=== PATIENT | female | born 1990 ===

== ENCOUNTER 2018-02-22 00:58 | Inpatient (IN) | payer OTHER ==
--- NOTE | 2018-02-22 01:05 | C.PDOC ---
History Of Present Illness 26 year old female is brought to the ED by [facility] for evaluation. Patient states she is depressed and wants to but has no plan. Patient is and has one child, she tried to run from home and her sister in law called the Police. Patient denies HI, hallucinations, CP, SOB, abdominal pain. Time Seen by Provider: 02/22/18 01:04 Chief Complaint (Nursing): Psychiatric Evaluation History Per: Patient, Other (JC) History/Exam Limitations: no limitations Onset/Duration Of Symptoms: Hrs Current Symptoms Are (Timing): Still Present Suicide/Self Injury Attempted (Context): None Modifying Factor(s): None Associated Symptoms: Depression, Suicidal Thoughts. 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 Past Medical History Reviewed: Historical Data, Nursing Documentation, Vital Signs Vital Signs: Last Vital Signs Temp 97.5 F L 02/22/18 04:41 Pulse 86 02/22/18 04:41 Resp 20 02/22/18 04:41 BP 103/67 02/22/18 04:41 Pulse Ox 100 02/22/18 04:41 - Medical History PMH: No Chronic Diseases Surgical History: No Surg Hx Family History: States: Unknown Family Hx - Social History Hx Tobacco Use: No Hx Alcohol Use: No Hx Substance Use: No Review Of Systems Constitutional: Negative for: Fever, Chills Cardiovascular: Negative for: Chest Pain Respiratory: Negative for: Shortness of Breath Gastrointestinal: Negative for: Nausea, Vomiting Skin: Negative for: Rash Psych: Positive for: Depression, Suicidal ideation Physical Exam - Physical Exam Appears: Non-toxic, Other (tearful ) Skin: Warm, Dry Head: Normacephalic Eye(s): bilateral: Normal Inspection Oral Mucosa: Moist Neck: Supple Chest: Symmetrical, Other (small abrasion over left clavicle) Cardiovascular: Rhythm Regular Respiratory: No Rales, No Rhonchi, No Wheezing Gastrointestinal/Abdominal: Soft, No Tenderness, No Guarding, No Rebound Back: Normal Inspection Extremity: Normal ROM, No Tenderness, No Swelling Extremity: Bilateral: Atraumatic Neurological/Psych: Oriented x3, Normal Speech Gait: Steady ED Course And Treatment - Laboratory Results Result Diagrams: 02/22/18 01:24 02/22/18 01:24 O2 Sat by Pulse Oximetry: 100 (ON RA) Pulse Ox Interpretation: Normal Progress Note: Plan: - Labs. - UA. - 1:1 Obs. - crisis Disposition Counseled Patient/Family Regarding: Studies Performed, Diagnosis - Disposition Disposition Time: 01:05 Condition: FAIR Forms: [facility] (Rwandan) - Clinical Impression Clinical Impression: Major depression - Scribe Statement The provider has reviewed the documentation as recorded by the Scribe Boo Etienne All medical record entries made by the Scribe were at my direction and personally dictated by me. I have reviewed the chart and agree that the record accurately reflects my personal performance of the history, physical exam, medical decision making, and the department course for this patient. I have also personally directed, reviewed, and agree with the discharge instructions and disposition. Physician Patient Turnover Patient Signed Over To: Teena Harrison Handoff Comments: pending bed availalibility
[2018-02-22 01:06] VITALS: O2SAT 100
[2018-02-22 01:27] LABS: BASO % 0.3 % (0.0-2.0); EOS % 0.4 % (0.0-4.0); HEMOGLOBIN 12.6 g/dL (11.0-16.0); LYMPH % 10.2 % (20.0-40.0); MEAN CELL VOLUME 79.5 fL (81.0-99.0); MEAN CORPUSCULAR HEMOGLOBIN 26.5 pg (27.0-31.0); MEAN CORPUSCULAR HGB CONC 33.4 g/dL (33.0-37.0); MEAN PLATELET VOLUME 8.9 fL (7.2-11.7); MONO # 0.6 K/uL (0.0-0.8); MONO % 5.6 % (0.0-10.0); NEUT # 8.6 K/uL (1.8-7.0); NEUT % 83.5 % (50.0-75.0); RBC 4.75 Mil/uL (3.80-5.20); RED CELL DISTRIBUTION WIDTH 14.2 % (11.5-14.5); WHITE BLOOD COUNT 10.3 K/uL (4.8-10.8)
[2018-02-22 01:40] LABS: ALB/GLOB RATIO 1.3 (1.0-2.1); ALBUMIN 4.3 g/dL (3.5-5.0); ALT/SGPT 24 U/L (9-52); AST/SGOT 17 U/L (14-36); BLOOD UREA NITROGEN 15 mg/dL (7-17); CALCIUM 9.2 mg/dl (8.6-10.4); GFR AFRICAN-AMERICAN > 60; GFR NON-AFRICAN AMERICAN > 60
[2018-02-22 02:32] LABS: SQUAMOUS EPITHIAL < 1 /hpf (0-5); URINE BILIRUBIN NEGATIVE (NEGATIVE); URINE BLOOD NEGATIVE (NEGATIVE); URINE CLARITY Clear (Clear); URINE COLOR Yellow (YELLOW); URINE GLUCOSE (UA) NORMAL (Normal); URINE LEUKOCYTE ESTERASE NEG Leu/uL (Negative); URINE PROTEIN NEGATIVE (NEGATIVE); URINE UROBILINOGEN NORMAL mg/dL (0.2-1.0)
[2018-02-22 02:43] LABS: HCG,QUALITATIVE URINE NEGATIVE (NEGATIVE)
[2018-02-22 02:44] LABS: BARBITURATES, UR NEGATIVE (NEGATIVE); BENZODIAZEPINES, UR NEGATIVE (NEGATIVE); OPIATES, UR NEGATIVE (NEGATIVE); PHENCYCLIDINE, UR NEGATIVE (NEGATIVE)
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
--- NOTE | 2018-02-22 14:01 | PCM.BM ---
<Yin Segura - Last Filed: 02/23/18 12:18> Treatment Plan Problems - Problems identified on initial assessmt Problem 2 Date Initiated: 02/22/18 Time Initiated: 14:00 Assessment reference: NA Status: Active Family Contact Family involvement: Family/SO is involved Family contact: Patient agrees to contact, Family meeting planned to review treatment plan - Goals for Treatment Patient goals for treatment: " I want to go home and be with my baby." Discharge/Continuing Care - Education Needs Education Needs: Patient Medication, Patient Diagnosis/Disease Process, Patient Coping Skills, Patient Community resources - Discharge Discharge Criteria: Free of Suicidal thoughts, Normal sleep pattern, Ability to care for self, Reduction of target symptoms Discharge to:: Home - Treatment Team Participation Discussed with Family/SO: Yes Was Patient/Family/SO present at Treatment Team Meeting: No <Amy Renteria - Last Filed: 02/23/18 13:36> - Diagnosis (1) depression Status: Acute Interventions: 02/23/18 13:36 * Assess/adjust medications daily and /or as needed * See patient on an individual basis 7x/week to assess symptoms of depression * Monitor for side effects & effectiveness of medications * <Caitlin Montoya - Last Filed: 02/24/18 08:49> - Milieu Protocol Milieu Narrative: Lexapro 5 mg today, 10 mg tomorro wand will increase slowly Abilify for possible psychosis and also to augment lexapro Ativan prn Other prn meds Family meeting when she consents All risks, benefits and alternatives of the meds discussed, and the pt agreed and understood. Attend groups and activities Individual therapy daily Psychoeducation and support daily Encourage compliance with meds and after care Refer to outpatient program Teach healthy lifestyle methods, i.e. diet, exercise, meditation 32 min Discharge/Continuing Care - Treatment Team Participation Patient/Family/SO Statement: Lexapro 5 mg today, 10 mg tomorro wand will increase slowly Abilify for possible psychosis and also to augment lexapro Ativan prn Other prn meds Family meeting when she consents All risks, benefits and alternatives of the meds discussed, and the pt agreed and understood. Attend groups and activities Individual therapy daily Psychoeducation and support daily Encourage compliance with meds and after care Refer to outpatient program Teach healthy lifestyle methods, i.e. diet, exercise, meditation 32 min
--- NOTE | 2018-02-22 14:03 | PCM.BM ---
Treatment Plan Problems - Problems identified on initial assessmt Problem 2 Date Initiated: 02/22/18 Time Initiated: 14:00 Assessment reference: NA Status: Active - Milieu Protocol Milieu Narrative: Lexapro 5 mg today, 10 mg tomorro wand will increase slowly Abilify for possible psychosis and also to augment lexapro Ativan prn Other prn meds Family meeting when she consents All risks, benefits and alternatives of the meds discussed, and the pt agreed and understood. Attend groups and activities Individual therapy daily Psychoeducation and support daily Encourage compliance with meds and after care Refer to outpatient program Teach healthy lifestyle methods, i.e. diet, exercise, meditation 32 min Discharge/Continuing Care - Treatment Team Participation Patient/Family/SO Statement: Lexapro 5 mg today, 10 mg tomorro wand will increase slowly Abilify for possible psychosis and also to augment lexapro Ativan prn Other prn meds Family meeting when she consents All risks, benefits and alternatives of the meds discussed, and the pt agreed and understood. Attend groups and activities Individual therapy daily Psychoeducation and support daily Encourage compliance with meds and after care Refer to outpatient program Teach healthy lifestyle methods, i.e. diet, exercise, meditation 32 min
--- NOTE | 2018-02-23 11:52 | PCM.PYCHPN ---
Psychiatric Progress Note - Psychiatric Progress Note Patient seen today, length of contact: 32 min Patient Chief Complaint: "I feel better" Problems Identified/Issues Discussed: The patient was seen, chart reviewed and case discussed. Her came for a family meeting and met with the patient and the treatment team. Yesterday the patient was adamant to not have any single relationship with the family including her but she changed her mind quickly and spoke to her who later on visited. Today also she was having mixed feelings but agreed to meet with the and she started to ask about discharge home. She says she misses her daughter and wants to be with her. According to the , she never had any issues until and only after the delivery she started to have more breakdowns like this one. He denies any significant issue between the patient and him or his family, and he looked like a calm pleasant and polite person. The patient greeted him well and their interaction is observed to be positive. Her denied ever noticing any psychotic or manic symptoms and denied any substance use issues. He repeated the same story the patient told us and he confirmed that he will support her emotionally and encourage her to attend outpatient program. Support and psychoeducation given Lexapro will be increased to 10 mg tomorrow Aftercare discussed and she will go to [facility] for [facility] Medication Change: Yes (increase lexapro) Medical Record Reviewed: Yes Mental Status Examination - Cognitive Function Orientation: Person, Place, Situation, Time Memory: Intact Attention: WNL Concentration: Poor Association: WNL Fund of Knowledge: WNL - Mood Mood: Depressed, Anxious - Affect Affect: Constricted - Speech Speech: Appropriate - Formal Thought Process Formal Thought Process: No Impairment - Suicidal Ideation Suicidal Ideation: No - Homicidal Ideation Homicidal Ideation: No Goal/Treatment Plan - Goal/Treatment Plan Need for Continued Stay: Severe depression anxiety, Discharge may exacerbated symptoms, Severe functional impairment Progress Toward Problem(s) and Goals/Treatment Plan: Lexapro 5 mg today, 10 mg tomorrow Abilify discontinued because she refused Ativan prn Other prn meds Family meeting when she consents All risks, benefits and alternatives of the meds discussed, and the pt agreed and understood. Attend groups and activities Individual therapy daily Psychoeducation and support daily Encourage compliance with meds and after care Refer to outpatient program Teach healthy lifestyle methods, i.e. diet, exercise, meditation Estimated Date of D/C: 02/25/18
--- NOTE | 2018-02-24 08:53 | PCM.BM ---
<Caitlin Montoya - Last Filed: 02/24/18 08:50> Treatment Plan Problems - Problems identified on initial assessmt Problem 2 Date Initiated: 02/22/18 Time Initiated: 14:00 Assessment reference: NA Status: Active Depression Date Initiated: 02/24/18 Time Initiated: 08:51 Assessment reference: NA Status: Active Treatment assets and liabiliti Patient Assests: cooperative, physically healthy, cognitively intact Patient Liabilities: relationship conflicts, language/speech (patient has limited Haitian) - Milieu Protocol Maintain good personal hygiene: daily Encourage regular showers, daily Remind patient to perform daily oral care, daily Assist patient to perform ADL's Maintain personal safety: daily Educate patient to report safety concerns to staff, daily Monitor environment for contraband/sharps Medication safety: Monitor for expected outcome, potential side effects: daily, Assess barriers to learning: daily, Assess readiness for medication education: daily Family Contact Family involvement: Family/SO is involved Family contact: Patient agrees to contact, Family meeting planned to review treatment plan - Goals for Treatment Patient goals for treatment: " I want to go home and be with my baby." Discharge/Continuing Care - Education Needs Education Needs: Patient Medication, Patient Diagnosis/Disease Process, Patient Coping Skills, Patient Community resources - Discharge Discharge Criteria: Free of Suicidal thoughts, Normal sleep pattern, Ability to care for self, Reduction of target symptoms Discharge to:: Home - Treatment Team Participation Discussed with Family/SO: Yes Was Patient/Family/SO present at Treatment Team Meeting: No <Amy Renteria - Last Filed: 02/24/18 11:28> - Diagnosis (1) depression Status: Acute Interventions: 02/24/18 11:28 * Assess/adjust medications daily and /or as needed * See patient on an individual basis 7x/week to assess symptoms of depression * Monitor for side effects & effectiveness of medications * <Yin Segura - Last Filed: 02/24/18 13:36>
--- NOTE | 2018-02-24 11:31 | PCM.PYCHPN ---
Psychiatric Progress Note - Psychiatric Progress Note Patient seen today, length of contact: 18 min Patient Chief Complaint: "I am anxious" Problems Identified/Issues Discussed: The patient was seen, chart reviewed and case discussed. She is somewhat better - denying suicidal thoughts now, looks better but a little anxious and guarded She agrees to take meds and go to [facility], our outpt program GOt 10 mg today, not 5 mg, Lexapro No SEs Support given Symptom management discussed CBT used Medication Change: Yes (increase lexapro) Medical Record Reviewed: Yes Mental Status Examination - Cognitive Function Orientation: Person, Place, Situation, Time Memory: Intact Attention: WNL Concentration: Poor Association: WNL Fund of Knowledge: WNL - Mood Mood: Depressed, Anxious - Affect Affect: Constricted - Speech Speech: Appropriate - Formal Thought Process Formal Thought Process: No Impairment - Suicidal Ideation Suicidal Ideation: No - Homicidal Ideation Homicidal Ideation: No Goal/Treatment Plan - Goal/Treatment Plan Need for Continued Stay: Severe depression anxiety, Discharge may exacerbated symptoms, Severe functional impairment Progress Toward Problem(s) and Goals/Treatment Plan: Lexapro 10 mg today Ativan prn Other prn meds Family meeting when she consents All risks, benefits and alternatives of the meds discussed, and the pt agreed and understood. Attend groups and activities Individual therapy daily Psychoeducation and support daily Encourage compliance with meds and after care Refer to outpatient program Teach healthy lifestyle methods, i.e. diet, exercise, meditation Estimated Date of D/C: 02/25/18
[2018-02-25 06:34] VITALS: BP 116/77; PULSE 93; RESP 20; TEMP 97.9
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
== END 2018-02-25 10:35 | disposition home or self-care (01) | DRG 885 ==
LOC: EDBD 00:58 → C.ER 00:58 → EEVIPCON 08:56 → C.9E 08:56 → C.5E 10:43
PROVIDERS: ADMIT Psychiatry & Neurology Psychiatry; ATTEND Psychiatry & Neurology Psychiatry
PROC: GZHZZZZ Group Psychotherapy (ICD-10-PCS; principal; 2018-02-22)
PROC: GZ58ZZZ Individual Psychotherapy, Cognitive-Behavioral (ICD-10-PCS; 2018-02-22)
PROC: GZ56ZZZ Individual Psychotherapy, Supportive (ICD-10-PCS; 2018-02-22)
DX: F32.2 Major depressive disorder, single episode, severe without psychotic features (principal); R45.851 Suicidal ideations

== ENCOUNTER 2018-05-18 16:27 | Emergency (ER) | payer OTHER ==
[2018-05-18 16:34] VITALS: BP 118/85; PULSE 94; RESP 18; TEMP 97.4; O2SAT 100
--- NOTE | 2018-05-18 17:16 | C.PDOC ---
History Of Present Illness 27 year old female presents to the ER with significant other after they got into a disagreement with each other and made a comment of wanting to hurt herself. On arrival, patient states she does not truly feel that, she was upset and said it out of anger. Denies ETOH use, substance abuse, suicidal ideation, or homicidal ideation. Time Seen by Provider: 05/18/18 16:41 Chief Complaint (Nursing): Psychiatric Evaluation History Per: Patient History/Exam Limitations: no limitations Onset/Duration Of Symptoms: Hrs Current Symptoms Are (Timing): Gone Suicide/Self Injury Attempted (Context): None Modifying Factor(s): None Associated Symptoms: denies: Suicidal Thoughts, Other (Homicidal ideation) Involuntary Hold By: None Recent travel outside of the [place]: No Past Medical History Reviewed: Historical Data, Nursing Documentation, Vital Signs Vital Signs: Last Vital Signs Temp 97.4 F L 05/18/18 16:29 Pulse 94 H 05/18/18 16:29 Resp 18 05/18/18 16:29 BP 118/85 05/18/18 16:29 Pulse Ox 100 05/18/18 17:26 - Medical History PMH: Depression Denies: Diabetes, Hepatitis, HIV, HTN, Chronic Kidney Disease, Seizures, Sexually Transmitted Disease - [facility] Procedures GROUP PSYCHOTHERAPY (02/22/18) INDIVIDUAL PSYCHOTHERAPY, COGNITIVE-BEHAVIORAL (02/22/18) INDIVIDUAL PSYCHOTHERAPY, SUPPORTIVE (02/22/18) Family History: States: Unknown Family Hx - Social History Hx Tobacco Use: No Hx Alcohol Use: No Hx Substance Use: No Review Of Systems Constitutional: Negative for: Fever, Chills Cardiovascular: Negative for: Chest Pain, Palpitations Respiratory: Negative for: Cough, Shortness of Breath Gastrointestinal: Negative for: Nausea, Vomiting Psych: Negative for: Suicidal ideation, Other (Homicidal ideation) Physical Exam - Physical Exam Appears: Non-toxic Skin: Normal Color, Warm, Dry Head: Atraumatic, Normacephalic Eye(s): bilateral: Normal Inspection Oral Mucosa: Moist Chest: Symmetrical, No Tenderness Cardiovascular: Rhythm Regular Respiratory: Normal Breath Sounds, No Rales, No Rhonchi, No Wheezing Gastrointestinal/Abdominal: Soft, No Tenderness Neurological/Psych: Oriented x3, Normal Speech ED Course And Treatment O2 Sat by Pulse Oximetry: 100 (Room air) Pulse Ox Interpretation: Normal Medical Decision Making Medical Decision Making: Assessment: Mood disorder Patient cleared by Dr. Dominguez for discharge. Disposition Discussed With Dr.: Joesph Dominguez Counseled Patient/Family Regarding: Studies Performed, Diagnosis - Disposition Disposition: HOME/ ROUTINE Disposition Time: 17:28 Condition: STABLE Additional Instructions: follow up with your doctor within 2 days call to make an appointment return to ER if symptoms worsens Instructions: Screening for Depression Forms: [facility] ([place]), General Discharge Instructions - Clinical Impression Clinical Impression: Agitation - Scribe Statement The provider has reviewed the documentation as recorded by the Scribvernell Noguera All medical record entries made by the Rubiaibvernell were at my direction and personally dictated by me. I have reviewed the chart and agree that the record accurately reflects my personal performance of the history, physical exam, medical decision making, and the department course for this patient. I have also personally directed, reviewed, and agree with the discharge instructions and disposition.
== END 2018-05-18 17:35 | disposition home or self-care (01) ==
LOC: C.ER 16:27
DX: R45.1 Restlessness and agitation (principal)

== ENCOUNTER 2019-01-30 03:41 | Inpatient (IN) | payer OTHER ==
[2019-01-30] MEDS ORDERED: Sodium Chloride 0.9% 1,000 ML IV ONE ×3 (03:56→06:13)
[2019-01-30 04:30] LABS: BASO # 0.1 K/uL (0.0-0.2); BASO % 0.4 % (0.0-2.0); EOS # 0.1 K/uL (0.0-0.7); EOS % 0.4 % (0.0-4.0); HEMOGLOBIN 12.8 g/dL (11.0-16.0); LYMPH # 2.2 K/uL (1.0-4.3); LYMPH % 15.1 % (20.0-40.0); MEAN CELL VOLUME 80.3 fL (81.0-99.0); MEAN CORPUSCULAR HEMOGLOBIN 25.7 pg (27.0-31.0); MEAN PLATELET VOLUME 8.5 fL (7.2-11.7); MONO # 0.6 K/uL (0.0-0.8); MONO % 3.9 % (0.0-10.0); NEUT # 11.4 K/uL (1.8-7.0); NEUT % 80.2 % (50.0-75.0); RBC 4.98 Mil/uL (3.80-5.20); RED CELL DISTRIBUTION WIDTH 13.9 % (11.5-14.5); WHITE BLOOD COUNT 14.3 K/uL (4.8-10.8)
[2019-01-30 04:58] LABS: ACETAMINOPHEN < 10.0 ug/mL (10.0-30.0); ALB/GLOB RATIO 1.4 (1.0-2.1); ALBUMIN 4.8 g/dL (3.5-5.0); ALT/SGPT 22 U/L (9-52); AST/SGOT 19 U/L (14-36); BLOOD UREA NITROGEN 14 mg/dL (7-17); CALCIUM 9.7 mg/dl (8.6-10.4); GFR NON-AFRICAN AMERICAN 44; LIPASE 134 U/L (23-300); SALICYLATE < 1.0 {null, mg/dL 1}
[2019-01-30 04:58] LABS: BROAD CAST 5 /lpf (0-1); URINE AMORPHOUS SEDIMENT RARE /ul (<OCC); URINE BACTERIA RARE (<OCC); URINE BILIRUBIN NEGATIVE (NEGATIVE); URINE BLOOD 1+ (NEGATIVE); URINE CLARITY Clear (Clear); URINE COLOR Straw (YELLOW); URINE GLUCOSE (UA) 1+ mg/dL (Normal); URINE LEUKOCYTE ESTERASE NEG Leu/uL (Negative); URINE PROTEIN 1+ mg/dL (NEGATIVE); URINE UROBILINOGEN NORMAL mg/dL (0.2-1.0)
[2019-01-30 04:59] LABS: HCG,QUALITATIVE URINE NEGATIVE (NEGATIVE)
[2019-01-30 05:05] LABS: BARBITURATES, UR NEGATIVE (NEGATIVE); BENZODIAZEPINES, UR NEGATIVE (NEGATIVE); OPIATES, UR NEGATIVE (NEGATIVE); PHENCYCLIDINE, UR NEGATIVE (NEGATIVE)
--- NOTE | 2019-01-30 05:27 | C.PDOC ---
History Of Present Illness 28-year-old female is brought to the ED by ambulance with at bedside for evaluation of nausea, vomiting and diarrhea which began prior to arrival. Patient states she got into an argument with her and took ten tablets of 500mg Metformin because she wanted to hurt herself. Upon ED arrival, patient states she feels tired and sleepy. Patient has past psychiatric history and has been admitted for suicidal ideation in the past. As per , patient took Lexapro in the past but is no longer taking the medication. Patient denies shortness of breath, chest pain, and abdominal pain at this time. Pt denies taking any more pills or drugs. Time Seen by Provider: 01/30/19 03:56 Chief Complaint (Nursing): GI Problem History Per: Patient, Family History/Exam Limitations: no limitations Onset/Duration Of Symptoms: Hrs Current Symptoms Are (Timing): Still Present Suicide/Self Injury Attempted (Context): Ingestion Modifying Factor(s): None Associated Symptoms: Suicidal Thoughts Additional History Per: Patient Past Medical History Reviewed: Historical Data, Nursing Documentation, Vital Signs Vital Signs: Last Vital Signs Temp 98 F 01/30/19 05:20 Pulse 76 01/30/19 05:20 Resp 16 01/30/19 05:20 BP 106/65 01/30/19 05:20 Pulse Ox 99 01/30/19 05:20 Primary Care Provider: Non [facility] Provider, - Medical History PMH: Depression Denies: Diabetes, Hepatitis, HIV, HTN, Chronic Kidney Disease, Seizures, Sexually Transmitted Disease Surgical History: No Surg Hx - [facility] Procedures GROUP PSYCHOTHERAPY (02/22/18) INDIVIDUAL PSYCHOTHERAPY, COGNITIVE-BEHAVIORAL (02/22/18) INDIVIDUAL PSYCHOTHERAPY, SUPPORTIVE (02/22/18) Family History: States: Unknown Family Hx - Social History Hx Tobacco Use: No Hx Alcohol Use: No Hx Substance Use: No Review Of Systems Cardiovascular: Negative for: Chest Pain Respiratory: Positive for: Shortness of Breath Gastrointestinal: Positive for: Nausea, Vomiting, Diarrhea. Negative for: Abdominal Pain Psych: Positive for: Suicidal ideation Physical Exam - Physical Exam Appears: Non-toxic, No Acute Distress, Other (sleepy, but arousable to focal stimuli ) Skin: Normal Color, Warm, Dry Head: Atraumatic, Normacephalic Eye(s): bilateral: Normal Inspection Oral Mucosa: Moist Neck: Supple Chest: Symmetrical, No Deformity, No Tenderness Cardiovascular: Rhythm Regular, No Murmur Respiratory: Normal Breath Sounds, No Rales, No Rhonchi, No Wheezing Gastrointestinal/Abdominal: Soft, No Tenderness, No Guarding, No Rebound Extremity: Normal ROM, Capillary Refill (less than 2 seconds ) Neurological/Psych: Normal Speech, Normal Cognition ED Course And Treatment - Laboratory Results Result Diagrams: 01/30/19 04:31 01/30/19 04:31 Lab Results: Total Bilirubin 0.5 mg/dL (0.2-1.3) 01/30/19 04:31 AST 19 U/L (14-36) 01/30/19 04:31 ALT 22 U/L (9-52) 01/30/19 04:31 Alkaline Phosphatase 88 U/L (38-126) 01/30/19 04:31 Total Protein 8.1 g/dL (6.3-8.3) 01/30/19 04:31 Albumin 4.8 g/dL (3.5-5.0) 01/30/19 04:31 Globulin 3.4 gm/dL (2.2-3.9) 01/30/19 04:31 Albumin/Globulin Ratio 1.4 (1.0-2.1) 01/30/19 04:31 Lipase 134 U/L (23-300) 01/30/19 04:31 Urine Color Straw (YELLOW) 01/30/19 04:45 Urine Clarity Clear (Clear) 01/30/19 04:45 Urine pH 5.0 (5.0-8.0) 01/30/19 04:45 Ur Specific [place] 1.005 (1.003-1.030) 01/30/19 04:45 Urine Protein 1+ mg/dL (NEGATIVE) H 01/30/19 04:45 Urine Glucose (UA) 1+ mg/dL (Normal) 01/30/19 04:45 Urine Ketones Negative mg/dL (NEGATIVE) 01/30/19 04:45 Urine Blood 1+ (NEGATIVE) H 01/30/19 04:45 Urine Nitrate Negative (NEGATIVE) 01/30/19 04:45 Urine Bilirubin Negative (NEGATIVE) 01/30/19 04:45 Urine Urobilinogen Normal mg/dL (0.2-1.0) 01/30/19 04:45 Ur Leukocyte Esterase Neg [place]/uL (Negative) 01/30/19 04:45 Urine WBC (Auto) 1 /hpf (0-5) 01/30/19 04:45 Urine RBC (Auto) 6 /hpf (0-3) H 01/30/19 04:45 Amorphous Sediment Rare /ul (<OCC) H 01/30/19 04:45 Urine Bacteria Rare (<OCC) 01/30/19 04:45 Broad Casts 5 /lpf (0-1) 01/30/19 04:45 Urine HCG, Qual Negative (NEGATIVE) 01/30/19 04:45 Beta HCG, Quant < 2.39 mIU/ML 01/30/19 04:31 Urine HCG, Qual Negative (NEGATIVE) 01/30/19 04:45 O2 Sat by Pulse Oximetry: 99 (on RA) Pulse Ox Interpretation: Normal Progress Note: Poison control was contacted by DANIELLE Talbot. Informed that labs, including lactic acid, should be drawn. Patient with accu check of 153 on arrival. bead worker sewing was consulted for evaluation. Bloodwork and urinalysis ordered and reviewed. Patient with lactic acid level of 5.3. IV Fluids and Zofran given. VBG panel ordered. Pt with PH of 7.2 and lactate of 6.2 on VBG. Pt will be admitted to ICU under Dr Encarnacion with assistant director of security consult- case d/w dr River (ICU) and Dr Encarnacion who accepted the patient. Poison control consulted. Spoke to Woodrow from Poison Control regarding patient's lactic acid and pH level. Advised that as long as patient remains stable, lactic acid and pH levels should be repeated every 4 hours. Determination will be made to contact Poison Control if there is any remarkable deviation of levels. Critical Care Time - Critical Care Note Total Time (in mins): 30 Documented critical care: time excludes all time spent performing seperately billable procedures. 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 - Scribe Statement The provider has reviewed the documentation as recorded by the Scribe (Deyanira Hernandez) All medical record entries made by the Scribe were at my direction and personally dictated by me. I have reviewed the chart and agree that the record accurately reflects my personal performance of the history, physical exam, medical decision making, and the department course for this patient. I have also personally directed, reviewed, and agree with the discharge instructions and disposition.
[2019-01-30 05:46] LABS: VENOUS BLOOD GAS BASE EXCESS -9.9 mmol/L (0.0-2.0); VENOUS BLOOD GAS PCO2 46 mmHg (40-60); VENOUS BLOOD GAS PO2 33 mm/Hg (30-55)
--- NOTE | 2019-01-30 06:35 | CP.PCM.CON ---
History of Present Illness - History of Present Illness History of Present Illness: CCM 28 yo female with hx Depression /suicidal ideation to ED after ingesting 10 tabs Metformin 500 mg. Pt c/o nausea/vomiting feeling cold. Recieving IV fluid in ED. Poison control suggestd repeat lactate levels in 4 hrs. Pt just vomited when seen in ED.NO sob /pain. ROS- as noted All- NKDA social- no tob/ etoh/drugs Meds- reviewed, None FH- Unknown PE T-97.7 P-86 R-20 BP-102/66 Awake,responisve Neck- no jvdlungs- bilat bs Heart-rr ABd- bs+, soft, nontneder Ext- no edema, nontender Neuro- nonfocal Labs, EKG-reviewed A&P Metformin OD Suicide Attempt BETH Lactic Acidosis Depression Admit to ICU IV fluid f/u lactate /ABG May require dialysis Psych eval DVT prophylaxis Past Patient History - Past Social History Smoking Status: Never Smoked - CARDIAC Hx Hypertension: No - PULMONARY Hx Respiratory Disorders: No Hx Tuberculosis: No - NEUROLOGICAL Hx Seizures: No - HEENT Hx HEENT Problems: No - RENAL Hx Chronic Kidney Disease: No - ENDOCRINE/METABOLIC Hx Endocrine Disorders: Yes Other/Comment: gestational diabetes - HEMATOLOGICAL/ONCOLOGICAL Hx Human Immunodeficiency Virus (HIV): No - INTEGUMENTARY Hx Dermatological Problems: No - MUSCULOSKELETAL/RHEUMATOLOGICAL Hx Musculoskeletal Disorders: No - GASTROINTESTINAL Hx Gastrointestinal Disorders: No - GENITOURINARY/GYNECOLOGICAL Hx Sexually Transmitted Disorders: No - PSYCHIATRIC Hx Depression: Yes Hx Substance Use: No - SURGICAL HISTORY Hx Surgeries: No - ANESTHESIA Hx Anesthesia: No Meds Allergies/Adverse Reactions: Allergies Allergy/AdvReac Type Severity Reaction Status Date / Time No Known Allergies Allergy Verified 01/30/19 03:56 - Medications Medications: Current Medications Sodium Chloride (Sodium Chloride 0.9%) 1,000 mls @ 1,000 mls/hr IV .Q1H ONE Stop: 01/30/19 07:12 Last Admin: 01/30/19 06:19 Dose: 1,000 mls/hr Results - Vital Signs Recent Vital Signs: Last Vital Signs Temp 97.7 F 01/30/19 06:25 Pulse 83 01/30/19 06:25 Resp 16 01/30/19 06:25 BP 102/66 01/30/19 06:25 Pulse Ox 98 01/30/19 06:25 - Labs Result Diagrams: 01/30/19 04:31 01/30/19 04:31 Labs: Laboratory Results - last 24 hr 01/30/19 01/30/19 01/30/19 04:02 04:31 04:31 WBC 14.3 H RBC 4.98 Hgb 12.8 Hct 40.0 MCV 80.3 L MCH 25.7 L MCHC 32.0 L RDW 13.9 Plt Count 243 MPV 8.5 Neut % (Auto) 80.2 H Lymph % (Auto) 15.1 L [place] % (Auto) 3.9 Eos % (Auto) 0.4 Baso % (Auto) 0.4 Neut # (Auto) 11.4 H Lymph # (Auto) 2.2 [place] # (Auto) 0.6 Eos # (Auto) 0.1 Baso # (Auto) 0.1 pO2 VBG pH VBG pCO2 VBG HCO3 VBG Total CO2 VBG O2 Sat (Calc) VBG Base Excess VBG Potassium Glucose Lactate Crit Value Called To Crit Value Called By Crit Value Read Back Blood Gas Notified Time Sodium 142 Potassium 4.7 Chloride 107 Carbon Dioxide 14 L Anion Gap 26 H BUN 14 Creatinine 1.4 H Est GFR ( Amer) 53 Est GFR (Non-Af Amer) 44 POC Glucose (mg/dL) 158 H Random Glucose 155 H Lactic Acid Calcium 9.7 Total Bilirubin 0.5 AST 19 ALT 22 Alkaline Phosphatase 88 Total Protein 8.1 Albumin 4.8 Globulin 3.4 Albumin/Globulin Ratio 1.4 Lipase 134 Beta HCG, Quant Venous Blood Potassium Urine Color Urine Clarity Urine pH Ur Specific [place] Urine Protein Urine Glucose (UA) Urine Ketones Urine Blood Urine Nitrate Urine Bilirubin Urine Urobilinogen Ur Leukocyte Esterase Urine WBC (Auto) Urine RBC (Auto) Amorphous Sediment Urine Bacteria Broad Casts Urine HCG, Qual Salicylates Urine Opiates Screen Urine Methadone Screen Acetaminophen Ur Barbiturates Screen Ur Phencyclidine Scrn Ur Amphetamines Screen U Benzodiazepines Scrn U Oth Cocaine Metabols U Cannabinoids Screen Alcohol, Quantitative < 10 01/30/19 01/30/19 01/30/19 04:31 04:31 04:35 WBC RBC Hgb Hct MCV MCH MCHC RDW Plt Count MPV Neut % (Auto) Lymph % (Auto) [place] % (Auto) Eos % (Auto) Baso % (Auto) Neut # (Auto) Lymph # (Auto) [place] # (Auto) Eos # (Auto) Baso # (Auto) pO2 VBG pH VBG pCO2 VBG HCO3 VBG Total CO2 VBG O2 Sat (Calc) VBG Base Excess VBG Potassium Glucose Lactate Crit Value Called To Crit Value Called By Crit Value Read Back Blood Gas Notified Time Sodium Potassium Chloride Carbon Dioxide Anion Gap BUN Creatinine Est GFR ( Amer) Est GFR (Non-Af Amer) POC Glucose (mg/dL) Random Glucose Lactic Acid 5.3 H* Calcium Total Bilirubin AST ALT Alkaline Phosphatase Total Protein Albumin Globulin Albumin/Globulin Ratio Lipase Beta HCG, Quant < 2.39 Venous Blood Potassium Urine Color Urine Clarity Urine pH Ur Specific [place] Urine Protein Urine Glucose (UA) Urine Ketones Urine Blood Urine Nitrate Urine Bilirubin Urine Urobilinogen Ur Leukocyte Esterase Urine WBC (Auto) Urine RBC (Auto) Amorphous Sediment Urine Bacteria Broad Casts Urine HCG, Qual Salicylates < 1.0 Urine Opiates Screen Urine Methadone Screen Acetaminophen < 10.0 L Ur Barbiturates Screen Ur Phencyclidine Scrn Ur Amphetamines Screen U Benzodiazepines Scrn U Oth Cocaine Metabols U Cannabinoids Screen Alcohol, Quantitative 01/30/19 01/30/19 01/30/19 04:45 04:45 05:05 WBC RBC Hgb Hct MCV MCH MCHC RDW Plt Count MPV Neut % (Auto) Lymph % (Auto) [place] % (Auto) Eos % (Auto) Baso % (Auto) Neut # (Auto) Lymph # (Auto) [place] # (Auto) Eos # (Auto) Baso # (Auto) pO2 VBG pH VBG pCO2 VBG HCO3 VBG Total CO2 VBG O2 Sat (Calc) VBG Base Excess VBG Potassium Glucose Lactate Crit Value Called To Crit Value Called By Crit Value Read Back Blood Gas Notified Time Sodium Potassium Chloride Carbon Dioxide Anion Gap BUN Creatinine Est GFR ( Amer) Est GFR (Non-Af Amer) POC Glucose (mg/dL) 138 H Random Glucose Lactic Acid Calcium Total Bilirubin AST ALT Alkaline Phosphatase Total Protein Albumin Globulin Albumin/Globulin Ratio Lipase Beta HCG, Quant Venous Blood Potassium Urine Color Straw Urine Clarity Clear Urine pH 5.0 Ur Specific [place] 1.005 Urine Protein 1+ H Urine Glucose (UA) 1+ Urine Ketones Negative Urine Blood 1+ H Urine Nitrate Negative Urine Bilirubin Negative Urine Urobilinogen Normal Ur Leukocyte Esterase Neg Urine WBC (Auto) 1 Urine RBC (Auto) 6 H Amorphous Sediment Rare H Urine Bacteria Rare Broad Casts 5 Urine HCG, Qual Negative Salicylates Urine Opiates Screen Negative Urine Methadone Screen Negative Acetaminophen Ur Barbiturates Screen Negative Ur Phencyclidine Scrn Negative Ur Amphetamines Screen Negative U Benzodiazepines Scrn Negative U Oth Cocaine Metabols Negative U Cannabinoids Screen Negative Alcohol, Quantitative 01/30/19 05:31 WBC RBC Hgb Hct MCV MCH MCHC RDW Plt Count MPV Neut % (Auto) Lymph % (Auto) [place] % (Auto) Eos % (Auto) Baso % (Auto) Neut # (Auto) Lymph # (Auto) [place] # (Auto) Eos # (Auto) Baso # (Auto) pO2 33 VBG pH 7.20 L VBG pCO2 46 VBG HCO3 15.9 VBG Total CO2 19.4 L VBG O2 Sat (Calc) 60.3 VBG Base Excess -9.9 L VBG Potassium 5.3 H Glucose 150 H Lactate 6.2 H* Crit Value Called To Dr acharya Crit Value Called By Aleah rt Crit Value Read Back Y Blood Gas Notified Time 546 Sodium 142.0 Potassium Chloride 108.0 H Carbon Dioxide Anion Gap BUN Creatinine Est GFR ( Amer) Est GFR (Non-Af Amer) POC Glucose (mg/dL) Random Glucose Lactic Acid Calcium Total Bilirubin AST ALT Alkaline Phosphatase Total Protein Albumin Globulin Albumin/Globulin Ratio Lipase Beta HCG, Quant Venous Blood Potassium 5.3 H Urine Color Urine Clarity Urine pH Ur Specific [place] Urine Protein Urine Glucose (UA) Urine Ketones Urine Blood Urine Nitrate Urine Bilirubin Urine Urobilinogen Ur Leukocyte Esterase Urine WBC (Auto) Urine RBC (Auto) Amorphous Sediment Urine Bacteria Broad Casts Urine HCG, Qual Salicylates Urine Opiates Screen Urine Methadone Screen Acetaminophen Ur Barbiturates Screen Ur Phencyclidine Scrn Ur Amphetamines Screen U Benzodiazepines Scrn U Oth Cocaine Metabols U Cannabinoids Screen Alcohol, Quantitative
[2019-01-30] MEDS: Sodium Chloride 0.9% 1,000 ML IV SCH ×5 (07:51→22:00)
--- NOTE | 2019-01-30 08:13 | CP.PCM.HP ---
Past Patient History - Past Social History Smoking Status: Never Smoked - CARDIAC Hx Hypertension: No - PULMONARY Hx Respiratory Disorders: No Hx Tuberculosis: No - NEUROLOGICAL Hx Seizures: No - HEENT Hx HEENT Problems: No - RENAL Hx Chronic Kidney Disease: No - ENDOCRINE/METABOLIC Hx Endocrine Disorders: Yes Other/Comment: gestational diabetes - HEMATOLOGICAL/ONCOLOGICAL Hx Human Immunodeficiency Virus (HIV): No - INTEGUMENTARY Hx Dermatological Problems: No - MUSCULOSKELETAL/RHEUMATOLOGICAL Hx Musculoskeletal Disorders: No - GASTROINTESTINAL Hx Gastrointestinal Disorders: No - GENITOURINARY/GYNECOLOGICAL Hx Sexually Transmitted Disorders: No - PSYCHIATRIC Hx Depression: Yes Hx Substance Use: No - SURGICAL HISTORY Hx Surgeries: No - ANESTHESIA Hx Anesthesia: No Meds Allergies/Adverse Reactions: Allergies Allergy/AdvReac Type Severity Reaction Status Date / Time No Known Allergies Allergy Verified 01/30/19 03:56 Results - Vital Signs Recent Vital Signs: Last Vital Signs Temp 97.9 F 01/30/19 07:57 Pulse 75 01/30/19 07:52 Resp 13 01/30/19 07:52 BP 106/79 01/30/19 07:52 Pulse Ox 100 01/30/19 07:52 - Labs Result Diagrams: 01/30/19 04:31 01/30/19 04:31 Labs: Laboratory Results - last 24 hr 01/30/19 01/30/19 01/30/19 04:02 04:31 04:31 WBC 14.3 H RBC 4.98 Hgb 12.8 Hct 40.0 MCV 80.3 L MCH 25.7 L MCHC 32.0 L RDW 13.9 Plt Count 243 MPV 8.5 Neut % (Auto) 80.2 H Lymph % (Auto) 15.1 L [place] % (Auto) 3.9 Eos % (Auto) 0.4 Baso % (Auto) 0.4 Neut # (Auto) 11.4 H Lymph # (Auto) 2.2 [place] # (Auto) 0.6 Eos # (Auto) 0.1 Baso # (Auto) 0.1 pO2 VBG pH VBG pCO2 VBG HCO3 VBG Total CO2 VBG O2 Sat (Calc) VBG Base Excess VBG Potassium Glucose Lactate Crit Value Called To Crit Value Called By Crit Value Read Back Blood Gas Notified Time Sodium 142 Potassium 4.7 Chloride 107 Carbon Dioxide 14 L Anion Gap 26 H BUN 14 Creatinine 1.4 H Est GFR ( Amer) 53 Est GFR (Non-Af Amer) 44 POC Glucose (mg/dL) 158 H Random Glucose 155 H Lactic Acid Calcium 9.7 Total Bilirubin 0.5 AST 19 ALT 22 Alkaline Phosphatase 88 Total Protein 8.1 Albumin 4.8 Globulin 3.4 Albumin/Globulin Ratio 1.4 Lipase 134 Beta HCG, Quant Venous Blood Potassium Urine Color Urine Clarity Urine pH Ur Specific [place] Urine Protein Urine Glucose (UA) Urine Ketones Urine Blood Urine Nitrate Urine Bilirubin Urine Urobilinogen Ur Leukocyte Esterase Urine WBC (Auto) Urine RBC (Auto) Amorphous Sediment Urine Bacteria Broad Casts Urine HCG, Qual Salicylates Urine Opiates Screen Urine Methadone Screen Acetaminophen Ur Barbiturates Screen Ur Phencyclidine Scrn Ur Amphetamines Screen U Benzodiazepines Scrn U Oth Cocaine Metabols U Cannabinoids Screen Alcohol, Quantitative < 10 01/30/19 01/30/19 01/30/19 04:31 04:31 04:35 WBC RBC Hgb Hct MCV MCH MCHC RDW Plt Count MPV Neut % (Auto) Lymph % (Auto) [place] % (Auto) Eos % (Auto) Baso % (Auto) Neut # (Auto) Lymph # (Auto) [place] # (Auto) Eos # (Auto) Baso # (Auto) pO2 VBG pH VBG pCO2 VBG HCO3 VBG Total CO2 VBG O2 Sat (Calc) VBG Base Excess VBG Potassium Glucose Lactate Crit Value Called To Crit Value Called By Crit Value Read Back Blood Gas Notified Time Sodium Potassium Chloride Carbon Dioxide Anion Gap BUN Creatinine Est GFR ( Amer) Est GFR (Non-Af Amer) POC Glucose (mg/dL) Random Glucose Lactic Acid 5.3 H* Calcium Total Bilirubin AST ALT Alkaline Phosphatase Total Protein Albumin Globulin Albumin/Globulin Ratio Lipase Beta HCG, Quant < 2.39 Venous Blood Potassium Urine Color Urine Clarity Urine pH Ur Specific [place] Urine Protein Urine Glucose (UA) Urine Ketones Urine Blood Urine Nitrate Urine Bilirubin Urine Urobilinogen Ur Leukocyte Esterase Urine WBC (Auto) Urine RBC (Auto) Amorphous Sediment Urine Bacteria Broad Casts Urine HCG, Qual Salicylates < 1.0 Urine Opiates Screen Urine Methadone Screen Acetaminophen < 10.0 L Ur Barbiturates Screen Ur Phencyclidine Scrn Ur Amphetamines Screen U Benzodiazepines Scrn U Oth Cocaine Metabols U Cannabinoids Screen Alcohol, Quantitative 05/03/1501/30/19 01/30/19 04:45 04:45 05:05 WBC RBC Hgb Hct MCV MCH MCHC RDW Plt Count MPV Neut % (Auto) Lymph % (Auto) [place] % (Auto) Eos % (Auto) Baso % (Auto) Neut # (Auto) Lymph # (Auto) [place] # (Auto) Eos # (Auto) Baso # (Auto) pO2 VBG pH VBG pCO2 VBG HCO3 VBG Total CO2 VBG O2 Sat (Calc) VBG Base Excess VBG Potassium Glucose Lactate Crit Value Called To Crit Value Called By Crit Value Read Back Blood Gas Notified Time Sodium Potassium Chloride Carbon Dioxide Anion Gap BUN Creatinine Est GFR ( Amer) Est GFR (Non-Af Amer) POC Glucose (mg/dL) 138 H Random Glucose Lactic Acid Calcium Total Bilirubin AST ALT Alkaline Phosphatase Total Protein Albumin Globulin Albumin/Globulin Ratio Lipase Beta HCG, Quant Venous Blood Potassium Urine Color Straw Urine Clarity Clear Urine pH 5.0 Ur Specific [place] 1.005 Urine Protein 1+ H Urine Glucose (UA) 1+ Urine Ketones Negative Urine Blood 1+ H Urine Nitrate Negative Urine Bilirubin Negative Urine Urobilinogen Normal Ur Leukocyte Esterase Neg Urine WBC (Auto) 1 Urine RBC (Auto) 6 H Amorphous Sediment Rare H Urine Bacteria Rare Broad Casts 5 Urine HCG, Qual Negative Salicylates Urine Opiates Screen Negative Urine Methadone Screen Negative Acetaminophen Ur Barbiturates Screen Negative Ur Phencyclidine Scrn Negative Ur Amphetamines Screen Negative U Benzodiazepines Scrn Negative U Oth Cocaine Metabols Negative U Cannabinoids Screen Negative Alcohol, Quantitative 01/30/19 01/30/19 05:31 06:29 WBC RBC Hgb Hct MCV MCH MCHC RDW Plt Count MPV Neut % (Auto) Lymph % (Auto) [place] % (Auto) Eos % (Auto) Baso % (Auto) Neut # (Auto) Lymph # (Auto) [place] # (Auto) Eos # (Auto) Baso # (Auto) pO2 33 VBG pH 7.20 L VBG pCO2 46 VBG HCO3 15.9 VBG Total CO2 19.4 L VBG O2 Sat (Calc) 60.3 VBG Base Excess -9.9 L VBG Potassium 5.3 H Glucose 150 H Lactate 6.2 H* Crit Value Called To Dr acharya Crit Value Called By Aleah rt Crit Value Read Back Y Blood Gas Notified Time 546 Sodium 142.0 Potassium Chloride 108.0 H Carbon Dioxide Anion Gap BUN Creatinine Est GFR ( Amer) Est GFR (Non-Af Amer) POC Glucose (mg/dL) 157 H Random Glucose Lactic Acid Calcium Total Bilirubin AST ALT Alkaline Phosphatase Total Protein Albumin Globulin Albumin/Globulin Ratio Lipase Beta HCG, Quant Venous Blood Potassium 5.3 H Urine Color Urine Clarity Urine pH Ur Specific [place] Urine Protein Urine Glucose (UA) Urine Ketones Urine Blood Urine Nitrate Urine Bilirubin Urine Urobilinogen Ur Leukocyte Esterase Urine WBC (Auto) Urine RBC (Auto) Amorphous Sediment Urine Bacteria Broad Casts Urine HCG, Qual Salicylates Urine Opiates Screen Urine Methadone Screen Acetaminophen Ur Barbiturates Screen Ur Phencyclidine Scrn Ur Amphetamines Screen U Benzodiazepines Scrn U Oth Cocaine Metabols U Cannabinoids Screen Alcohol, Quantitative
[2019-01-30 08:53] LABS: ALB/GLOB RATIO 1.4 (1.0-2.1); ALBUMIN 4.9 g/dL (3.5-5.0); CALCIUM 8.1 mg/dl (8.6-10.4)
--- NOTE | 2019-01-30 08:55 | CP.PCM.PN ---
Subjective - Date & Time of Evaluation Date of Evaluation: 01/30/19 Time of Evaluation: 08:00 - Subjective Subjective: Brief hospitalist note this is a 28 year old female with history of depression dx 2 years ago, gestational diabetes dx 2 years ago and history of depression who comes in following a verbal argument with her . Patient reports the argument content was not significant, that she bickers with her all the time, she reports she gets very angry and following her anger she feels she needs to act on it. She reports she took her mother in law metformin pills while she was very angry. She reports following the ingestion she had diarrhea, abdominal pain. patient reports she works usually weekend shifts at [employer] but has been covering extra shifts lately which interrupt her sleeping and feels she cannot met her needs as a mother to her 2 year old child in terms of feeding. She reports she told her boss that this past January 29 was her last shift at night. Patient reports she has been taking 2 antidepressants since her initial diagnoses of post depression 2 years ago but cannot remember the name and reports she ran out 2 weeks ago. Following our conversation, patient reports her PMD is Dr. Adeline Cunningham; I did advise her that her PMD comes to this hospital and asked her if she would like care to be resumed under him. I spoke with ICU and ICU resident to reach out to Dr. cunningham in light of this information, since he is her PMD. Objective - Vital Signs/Intake and Output Vital Signs (last 24 hours): Temp Pulse Resp BP Pulse Ox 97.9 F 81 21 119/71 100 01/30/19 07:57 01/30/19 08:09 01/30/19 08:09 01/30/19 08:09 01/30/19 08:09 Intake and Output: 01/30/19 01/30/19 06:59 18:59 Intake Total 400 Output Total 1100 Balance -700 - Medications Medications: Current Medications Heparin Sodium (Porcine) (Heparin) 5,000 units SC Q8 [facility] Last Admin: 01/30/19 08:39 Dose: Not Given Sodium Chloride (Sodium Chloride 0.9%) 1,000 mls @ 200 mls/hr IV .Q5H [facility] Last Admin: 01/30/19 07:51 Dose: 200 mls/hr - Labs Labs: 01/30/19 04:31 01/30/19 04:31
[2019-01-30 09:10] LABS: ABG ALLEN TEST POS; ARTERIAL BLOOD GAS HCO3 15.8 mmol/L (21-28); ARTERIAL BLOOD GAS O2 SAT 99.2 % (95-98); ARTERIAL BLOOD GAS PCO2 22 mm/Hg (35-45); ARTERIAL BLOOD GAS PH 7.34 (7.35-7.45); ARTERIAL BLOOD GAS PO2 132 mm/Hg (80-100); ARTERIAL BLOOD GAS TCO2 12.6 mmol/L (22-28)
--- NOTE | 2019-01-30 11:29 | CP.PCM.HP ---
History of Present Illness - History of Present Illness History of Present Illness: 28-year-old female is brought to the ED by ambulance with at bedside for evaluation of nausea, vomiting and diarrhea which began prior to arrival. Patient states she got into an argument with her and took ten tablets of 500mg Metformin because she wanted to hurt herself. Upon ED arrival, patient states she feels tired and sleepy. Patient has past psychiatric history and has been admitted for suicidal ideation in the past HEMODYNAMICALLY STABLE PT HAS H/O DM TAKES METFORMIN LAST SEEN IN OFFICE 08/14 ALSO USED TO TAKE ZOLOFT AND TRILAPTA FROM [facility] Present on Admission - Present on Admission Any Indicators Present on Admission: No Review of Systems - Review of Systems All systems: reviewed and no additional remarkable complaints except (FEELS WEAK AND TIRED) Past Patient History - Past Social History Smoking Status: Never Smoked - CARDIAC Hx Hypertension: No - PULMONARY Hx Respiratory Disorders: No Hx Tuberculosis: No - NEUROLOGICAL Hx Seizures: No - HEENT Hx HEENT Problems: No - RENAL Hx Chronic Kidney Disease: No - ENDOCRINE/METABOLIC Hx Endocrine Disorders: Yes Other/Comment: gestational diabetes - HEMATOLOGICAL/ONCOLOGICAL Hx Human Immunodeficiency Virus (HIV): No - INTEGUMENTARY Hx Dermatological Problems: No - MUSCULOSKELETAL/RHEUMATOLOGICAL Hx Musculoskeletal Disorders: No Hx Falls: No - GASTROINTESTINAL Hx Gastrointestinal Disorders: No - GENITOURINARY/GYNECOLOGICAL Hx Sexually Transmitted Disorders: No - PSYCHIATRIC Hx Depression: Yes (starting about 2 years ago) Hx Substance Use: No - SURGICAL HISTORY Hx Surgeries: No - ANESTHESIA Hx Anesthesia: No Meds Allergies/Adverse Reactions: Allergies Allergy/AdvReac Type Severity Reaction Status Date / Time No Known Allergies Allergy Verified 01/30/19 03:56 Physical Exam - Constitutional Appears: Well - Head Exam Head Exam: ATRAUMATIC, NORMAL INSPECTION, NORMOCEPHALIC - Eye Exam Eye Exam: EOMI, Normal appearance, PERRL - ENT Exam ENT Exam: Mucous Membranes Moist, Normal Exam - Neck Exam Neck exam: Positive for: Normal Inspection - Respiratory Exam Respiratory Exam: Clear to Auscultation Bilateral, NORMAL BREATHING PATTERN - Cardiovascular Exam Cardiovascular Exam: REGULAR RHYTHM - GI/Abdominal Exam GI & Abdominal Exam: Normal Bowel Sounds, Soft. absent: Tenderness - Extremities Exam Extremities exam: Positive for: normal inspection - Back Exam Back exam: NORMAL INSPECTION - Neurological Exam Neurological exam: Alert, CN II-XII Intact, Normal Gait, Oriented x3, Reflexes Normal Results - Vital Signs Recent Vital Signs: Last Vital Signs Temp 97.9 F 01/30/19 07:57 Pulse 86 01/30/19 11:12 Resp 12 01/30/19 11:12 BP 123/60 01/30/19 11:12 Pulse Ox 97 01/30/19 11:12 - Labs Result Diagrams: 01/30/19 04:31 01/30/19 08:27 Labs: Laboratory Results - last 24 hr 01/30/19 01/30/19 01/30/19 04:02 04:31 04:31 WBC 14.3 H RBC 4.98 Hgb 12.8 Hct 40.0 MCV 80.3 L MCH 25.7 L MCHC 32.0 L RDW 13.9 Plt Count 243 MPV 8.5 Neut % (Auto) 80.2 H Lymph % (Auto) 15.1 L [place] % (Auto) 3.9 Eos % (Auto) 0.4 Baso % (Auto) 0.4 Neut # (Auto) 11.4 H Lymph # (Auto) 2.2 [place] # (Auto) 0.6 Eos # (Auto) 0.1 Baso # (Auto) 0.1 Puncture Site pCO2 pO2 HCO3 ABG pH ABG Total CO2 ABG O2 Saturation ABG Base Excess Alfredo Test ABG Potassium VBG pH VBG pCO2 VBG HCO3 VBG Total CO2 VBG O2 Sat (Calc) VBG Base Excess VBG Potassium A-a O2 Difference Respiratory Index Glucose Lactate FiO2 Crit Value Called To Crit Value Called By Crit Value Read Back Blood Gas Notified Time Sodium 142 Potassium 4.7 Chloride 107 Carbon Dioxide 14 L Anion Gap 26 H BUN 14 Creatinine 1.4 H Est GFR ( Amer) 53 Est GFR (Non-Af Amer) 44 POC Glucose (mg/dL) 158 H Random Glucose 155 H Hemoglobin A1c Lactic Acid Calcium 9.7 Total Bilirubin 0.5 AST 19 ALT 22 Alkaline Phosphatase 88 Total Protein 8.1 Albumin 4.8 Globulin 3.4 Albumin/Globulin Ratio 1.4 Triglycerides Cholesterol LDL Cholesterol Direct HDL Cholesterol Lipase 134 Beta HCG, Quant Arterial Blood Potassium Venous Blood Potassium Urine Color Urine Clarity Urine pH Ur Specific [place] Urine Protein Urine Glucose (UA) Urine Ketones Urine Blood Urine Nitrate Urine Bilirubin Urine Urobilinogen Ur Leukocyte Esterase Urine WBC (Auto) Urine RBC (Auto) Amorphous Sediment Urine Bacteria Broad Casts Urine HCG, Qual Salicylates Urine Opiates Screen Urine Methadone Screen Acetaminophen Ur Barbiturates Screen Ur Phencyclidine Scrn Ur Amphetamines Screen U Benzodiazepines Scrn U Oth Cocaine Metabols U Cannabinoids Screen Alcohol, Quantitative < 10 01/30/19 01/30/19 01/30/19 04:31 04:31 04:35 WBC RBC Hgb Hct MCV MCH MCHC RDW Plt Count MPV Neut % (Auto) Lymph % (Auto) [place] % (Auto) Eos % (Auto) Baso % (Auto) Neut # (Auto) Lymph # (Auto) [place] # (Auto) Eos # (Auto) Baso # (Auto) Puncture Site pCO2 pO2 HCO3 ABG pH ABG Total CO2 ABG O2 Saturation ABG Base Excess Alfredo Test ABG Potassium VBG pH VBG pCO2 VBG HCO3 VBG Total CO2 VBG O2 Sat (Calc) VBG Base Excess VBG Potassium A-a O2 Difference Respiratory Index Glucose Lactate FiO2 Crit Value Called To Crit Value Called By Crit Value Read Back Blood Gas Notified Time Sodium Potassium Chloride Carbon Dioxide Anion Gap BUN Creatinine Est GFR ( Amer) Est GFR (Non-Af Amer) POC Glucose (mg/dL) Random Glucose Hemoglobin A1c Lactic Acid 5.3 H* Calcium Total Bilirubin AST ALT Alkaline Phosphatase Total Protein Albumin Globulin Albumin/Globulin Ratio Triglycerides Cholesterol LDL Cholesterol Direct HDL Cholesterol Lipase Beta HCG, Quant < 2.39 Arterial Blood Potassium Venous Blood Potassium Urine Color Urine Clarity Urine pH Ur Specific [place] Urine Protein Urine Glucose (UA) Urine Ketones Urine Blood Urine Nitrate Urine Bilirubin Urine Urobilinogen Ur Leukocyte Esterase Urine WBC (Auto) Urine RBC (Auto) Amorphous Sediment Urine Bacteria Broad Casts Urine HCG, Qual Salicylates < 1.0 Urine Opiates Screen Urine Methadone Screen Acetaminophen < 10.0 L Ur Barbiturates Screen Ur Phencyclidine Scrn Ur Amphetamines Screen U Benzodiazepines Scrn U Oth Cocaine Metabols U Cannabinoids Screen Alcohol, Quantitative 01/30/19 01/30/19 01/30/19 04:45 04:45 05:05 WBC RBC Hgb Hct MCV MCH MCHC RDW Plt Count MPV Neut % (Auto) Lymph % (Auto) [place] % (Auto) Eos % (Auto) Baso % (Auto) Neut # (Auto) Lymph # (Auto) [place] # (Auto) Eos # (Auto) Baso # (Auto) Puncture Site pCO2 pO2 HCO3 ABG pH ABG Total CO2 ABG O2 Saturation ABG Base Excess Alfredo Test ABG Potassium VBG pH VBG pCO2 VBG HCO3 VBG Total CO2 VBG O2 Sat (Calc) VBG Base Excess VBG Potassium A-a O2 Difference Respiratory Index Glucose Lactate FiO2 Crit Value Called To Crit Value Called By Crit Value Read Back Blood Gas Notified Time Sodium Potassium Chloride Carbon Dioxide Anion Gap BUN Creatinine Est GFR ( Amer) Est GFR (Non-Af Amer) POC Glucose (mg/dL) 138 H Random Glucose Hemoglobin A1c Lactic Acid Calcium Total Bilirubin AST ALT Alkaline Phosphatase Total Protein Albumin Globulin Albumin/Globulin Ratio Triglycerides Cholesterol LDL Cholesterol Direct HDL Cholesterol Lipase Beta HCG, Quant Arterial Blood Potassium Venous Blood Potassium Urine Color Straw Urine Clarity Clear Urine pH 5.0 Ur Specific [place] 1.005 Urine Protein 1+ H Urine Glucose (UA) 1+ Urine Ketones Negative Urine Blood 1+ H Urine Nitrate Negative Urine Bilirubin Negative Urine Urobilinogen Normal Ur Leukocyte Esterase Neg Urine WBC (Auto) 1 Urine RBC (Auto) 6 H Amorphous Sediment Rare H Urine Bacteria Rare Broad Casts 5 Urine HCG, Qual Negative Salicylates Urine Opiates Screen Negative Urine Methadone Screen Negative Acetaminophen Ur Barbiturates Screen Negative Ur Phencyclidine Scrn Negative Ur Amphetamines Screen Negative U Benzodiazepines Scrn Negative U Oth Cocaine Metabols Negative U Cannabinoids Screen Negative Alcohol, Quantitative 01/30/19 01/30/19 01/30/19 05:31 06:29 08:27 WBC RBC Hgb Hct MCV MCH MCHC RDW Plt Count MPV Neut % (Auto) Lymph % (Auto) [place] % (Auto) Eos % (Auto) Baso % (Auto) Neut # (Auto) Lymph # (Auto) [place] # (Auto) Eos # (Auto) Baso # (Auto) Puncture Site pCO2 pO2 33 HCO3 ABG pH ABG Total CO2 ABG O2 Saturation ABG Base Excess Alfredo Test ABG Potassium VBG pH 7.20 L VBG pCO2 46 VBG HCO3 15.9 VBG Total CO2 19.4 L VBG O2 Sat (Calc) 60.3 VBG Base Excess -9.9 L VBG Potassium 5.3 H A-a O2 Difference Respiratory Index Glucose 150 H Lactate 6.2 H* FiO2 Crit Value Called To Dr acharya Crit Value Called By Aleah rt Crit Value Read Back Y Blood Gas Notified Time 546 Sodium 142.0 143 Potassium 5.6 H Chloride 108.0 H 106 Carbon Dioxide 15 L Anion Gap 28 H BUN 13 Creatinine 1.4 H Est GFR ( Amer) 53 Est GFR (Non-Af Amer) 44 POC Glucose (mg/dL) 157 H Random Glucose 139 H Hemoglobin A1c Lactic Acid Calcium 8.1 L Total Bilirubin 0.5 AST 17 ALT 16 Alkaline Phosphatase 88 Total Protein 8.5 H Albumin 4.9 Globulin 3.6 Albumin/Globulin Ratio 1.4 Triglycerides 90 Cholesterol 152 LDL Cholesterol Direct 103 HDL Cholesterol 40 Lipase Beta HCG, Quant Arterial Blood Potassium Venous Blood Potassium 5.3 H Urine Color Urine Clarity Urine pH Ur Specific [place] Urine Protein Urine Glucose (UA) Urine Ketones Urine Blood Urine Nitrate Urine Bilirubin Urine Urobilinogen Ur Leukocyte Esterase Urine WBC (Auto) Urine RBC (Auto) Amorphous Sediment Urine Bacteria Broad Casts Urine HCG, Qual Salicylates Urine Opiates Screen Urine Methadone Screen Acetaminophen Ur Barbiturates Screen Ur Phencyclidine Scrn Ur Amphetamines Screen U Benzodiazepines Scrn U Oth Cocaine Metabols U Cannabinoids Screen Alcohol, Quantitative 01/30/19 01/30/19 01/30/19 08:27 08:27 08:45 WBC RBC Hgb Hct MCV MCH MCHC RDW Plt Count MPV Neut % (Auto) Lymph % (Auto) [place] % (Auto) Eos % (Auto) Baso % (Auto) Neut # (Auto) Lymph # (Auto) [place] # (Auto) Eos # (Auto) Baso # (Auto) Puncture Site Rr pCO2 22 L pO2 132 H HCO3 15.8 L ABG pH 7.34 L ABG Total CO2 12.6 L ABG O2 Saturation 99.2 H ABG Base Excess -11.8 L Alfredo Test Pos ABG Potassium 4.5 VBG pH VBG pCO2 VBG HCO3 VBG Total CO2 VBG O2 Sat (Calc) VBG Base Excess VBG Potassium A-a O2 Difference -10.0 Respiratory Index -0.1 Glucose 142 H Lactate 5.8 H* FiO2 21.0 Crit Value Called To Dr villalobos Crit Value Called By Tamera sykes rt Crit Value Read Back Y Blood Gas Notified Time 910 Sodium 139.0 Potassium Chloride 110.0 H Carbon Dioxide Anion Gap BUN Creatinine Est GFR ( Amer) Est GFR (Non-Af Amer) POC Glucose (mg/dL) Random Glucose Hemoglobin A1c 6.5 Lactic Acid 6.3 H* Calcium Total Bilirubin AST ALT Alkaline Phosphatase Total Protein Albumin Globulin Albumin/Globulin Ratio Triglycerides Cholesterol LDL Cholesterol Direct HDL Cholesterol Lipase Beta HCG, Quant Arterial Blood Potassium 4.5 Venous Blood Potassium Urine Color Urine Clarity Urine pH Ur Specific [place] Urine Protein Urine Glucose (UA) Urine Ketones Urine Blood Urine Nitrate Urine Bilirubin Urine Urobilinogen Ur Leukocyte Esterase Urine WBC (Auto) Urine RBC (Auto) Amorphous Sediment Urine Bacteria Broad Casts Urine HCG, Qual Salicylates Urine Opiates Screen Urine Methadone Screen Acetaminophen Ur Barbiturates Screen Ur Phencyclidine Scrn Ur Amphetamines Screen U Benzodiazepines Scrn U Oth Cocaine Metabols U Cannabinoids Screen Alcohol, Quantitative Assessment & Plan (1) Metformin overdose Status: Acute Comment: PER POISON CONTROL MONITOR LACTATE , PH Q 4HRS. PSYCH EVAL (2) Suicide attempt Status: Acute
--- NOTE | 2019-01-30 11:46 | PCM.PSYCH ---
Initial Psychiatric Evaluation - Initial Psychiatric Evaluation Type of Admission: Voluntary Legal Status: Capacity Chief Complaint (in patient's own words): "I am very tired" History of Present Illness and Precipitating Events: Pt is seen, chart reviewed and case discussed. Her is also called with her permission. Consult was for her suicide attempt last night Pt is a 28 year old [place] female with PMHx of depression, major depression and 2 prior suicidal attempts who presented to [facility] on 01/30/19 for metformin overdose. Pt says she took 10 tablets of her [id number] metformin 500mg tablets at around 9pm last night after having argument with her about little things pertaining to her behavior and she couldnt control my anger. She felt bad and regretted her decision to overdose on the medication 1 hour after when she started throwing up. She did not tell anyone until her asked if she did something at around 1am. She struggles with being slow, not being able to move fast, and as if her brain and body do not work together. Pt goes to see an [place] doctor when she visits [facility] and gets medication for her psychiatric illness. Name of med? However, she ran out of her medications 2 weeks ago. She admits to hearing whispers when no one is there and believes people are looking or talking about her. She is feeling better now and happy to be alive. Denies having a plan to kill self. Her was interviewed over the phone on 01/30/19 and he notes she was feeling upset and unwell for a couple of days now. She called out sick on Wednesday because she didnt feel good and was calling me all day during work. When he got home at 10pm last night after work she said nobody is with me and nobody invites me referring to family dinners. He told her she should go with him to dinner at his sisters but she refused. When he came back she was vomiting and said today is my last day. She didnt say anything about overdosing on pills until he asked her. As per , pt can be very stubborn, phillips, defensive, and tries to incite fights with him. She works 4 nights in a row in [employer], but will sometimes refuse to go to sleep at his urging and says she prefers to work nights. Past psych hx: She was admitted to psych last year on 02/24/19 for suicidal ideation. She struggled with suicidal thoughts since having her daughter 2 years ago. Medical hx: None known FamHx: Her oldest sister had depression. SocHx: Lives in [place] with her , daughter, [id number], [id number], and [id number]. She immigrated to the [place] 3 [place] ago in 2016 to come live with her and in-laws. She works at [employer] for the past 3 years. Denies alcohol, drug, and tobacco use. Allergies: NKDA Current Medications: Active Medications Generic Name Dose Route Start Last Admin Trade Name Freq PRN Reason Stop Dose Admin Heparin Sodium (Porcine) 5,000 units 01/30/19 06:45 01/30/19 08:39 Heparin SC Not Given Q8 [facility] Sodium Chloride 1,000 mls @ 200 mls/hr 01/30/19 06:45 01/30/19 07:51 Sodium Chloride 0.9% IV 200 mls/hr .Q5H [facility] Administration Past Psychiatric History - Past Psychiatric History Previous Treatment History: Inpatient Pertinent Medical Hx (Current Medical&Sleep Prob, Allergies): Allergies Allergy/AdvReac Type Severity Reaction Status Date / Time No Known Allergies Allergy Verified 01/30/19 03:56 Escitalopram [Lexapro] 10 mg PO DAILY #30 tab 02/25/18 Review of Systems - Psychiatric Psychiatric: Abnormal Sleep Pattern, Anhedonia, Anxiety, Depression, Difficulty Concentrating, Hallucinations, Mood Swings. absent: Homicidal Ideation, Irritability, Paranoia, Suicidal Ideation Mental Status Examination - Personal Presentation Personal Presentation: Looks stated age - Affect Affect: Constricted - Motor Activity Motor Activity: Calm - Reliability in Providing Information Reliability in Providing Information: Good - Speech Speech: Organized - Mood Mood: Depressed, Anxious - Formal Thought Process Formal Thought Process: Hallucinations - Cognitive Functions Orientation: Person, Place, Situation, Time Sensorium: Drowsy Attention/Concentration: Easily distracted Estimate of Intelligence: Average Judgement: Intact, as evidence by: Insight regarding need for hospitalization Memory: Recent intact, as evidence by: Ability to recall events of the day, Rem ote impaired as evidenced by: Inability to recall sig life events - Risk Risk: Diminished functioning - Strength & Assets Inventory Strength & Assets Inventory: Family support, Cooperative - Limitations Limitations: Other DSM 5 DX - DSM 5 DSM 5 Diagnosis: Major depression, recurrent, severe, with psychosis r/o Schizoaffective d/o - Recommended/Plan of Treatment Treatment Recommendations and Plan of Treatment: Start lexapro when she is medically cleared As need medications All risks, benefits and alternatives of the meds discussed, and the pt agreed and understood. Individual therapy Psychoeducation and support daily Transfer to psych when cleared. Call medical underwriter to check availability 33 min
--- NOTE | 2019-01-30 12:13 | CP.PCM.CON ---
History of Present Illness - History of Present Illness History of Present Illness: Pt is a 28 yo female with hx Depression /suicidal ideation- on antidepressant at home, ran out of meds 2 weeks ago, Presented to ER last night after ingesting 10 tabs Metformin (5000 mg total ) . Initially had some nausea/vomiting . Receiving IV fluid in ICU now . Vomited once this morning no headache, dizziness, diarrhea or abdominal cramps Renal consult for elevated Cr 1.4 and lactate level of 7 on presentation Ph 7.3 on ABG, no repeat labs since admission good UOP noted PMHx- depression PSHx- none All- NKDA social- no tob/ etoh/drugs FH-mother with DM Review of Systems - Review of Systems Review of Systems: as per HPI, other than that 10 point ROS negative Past Patient History - Past Social History Smoking Status: Never Smoked - CARDIAC Hx Hypertension: No - PULMONARY Hx Respiratory Disorders: No Hx Tuberculosis: No - NEUROLOGICAL Hx Seizures: No - HEENT Hx HEENT Problems: No - RENAL Hx Chronic Kidney Disease: No - ENDOCRINE/METABOLIC Hx Endocrine Disorders: Yes Other/Comment: gestational diabetes - HEMATOLOGICAL/ONCOLOGICAL Hx Human Immunodeficiency Virus (HIV): No - INTEGUMENTARY Hx Dermatological Problems: No - MUSCULOSKELETAL/RHEUMATOLOGICAL Hx Musculoskeletal Disorders: No Hx Falls: No - GASTROINTESTINAL Hx Gastrointestinal Disorders: No - GENITOURINARY/GYNECOLOGICAL Hx Sexually Transmitted Disorders: No - PSYCHIATRIC Hx Depression: Yes (starting about 2 years ago) Hx Substance Use: No - SURGICAL HISTORY Hx Surgeries: No - ANESTHESIA Hx Anesthesia: No Meds Allergies/Adverse Reactions: Allergies Allergy/AdvReac Type Severity Reaction Status Date / Time No Known Allergies Allergy Verified 01/30/19 03:56 - Medications Medications: Current Medications Heparin Sodium (Porcine) (Heparin) 5,000 units SC Q8 [facility] Last Admin: 01/30/19 08:39 Dose: Not Given Sodium Chloride (Sodium Chloride 0.9%) 1,000 mls @ 200 mls/hr IV .Q5H [facility] Last Admin: 01/30/19 07:51 Dose: 200 mls/hr Physical Exam - Constitutional Appears: Well, Non-toxic - Head Exam Head Exam: ATRAUMATIC, NORMOCEPHALIC - Eye Exam Eye Exam: EOMI, PERRL - ENT Exam ENT Exam: Mucous Membranes Moist - Neck Exam Neck exam: Positive for: Full Rom - Respiratory Exam Respiratory Exam: Clear to Auscultation Bilateral. absent: Rhonchi, Wheezes - Cardiovascular Exam Cardiovascular Exam: REGULAR RHYTHM, +S1, +S2 - GI/Abdominal Exam GI & Abdominal Exam: Normal Bowel Sounds, Soft. absent: Tenderness - Extremities Exam Extremities exam: Positive for: full ROM. Negative for: pedal edema - Neurological Exam Neurological exam: Alert, Oriented x3 - Psychiatric Exam Psychiatric exam: Depressed, Flat Affect - Skin Skin Exam: Normal Color, Warm Results - Vital Signs Recent Vital Signs: Last Vital Signs Temp 97.9 F 01/30/19 07:57 Pulse 86 01/30/19 11:12 Resp 12 01/30/19 11:12 BP 123/60 01/30/19 11:12 Pulse Ox 97 01/30/19 11:12 - Labs Result Diagrams: 01/30/19 04:31 01/30/19 08:27 Labs: Laboratory Results - last 24 hr 01/30/19 01/30/19 01/30/19 04:02 04:31 04:31 WBC 14.3 H RBC 4.98 Hgb 12.8 Hct 40.0 MCV 80.3 L MCH 25.7 L MCHC 32.0 L RDW 13.9 Plt Count 243 MPV 8.5 Neut % (Auto) 80.2 H Lymph % (Auto) 15.1 L Norman % (Auto) 3.9 Eos % (Auto) 0.4 Baso % (Auto) 0.4 Neut # (Auto) 11.4 H Lymph # (Auto) 2.2 Norman # (Auto) 0.6 Eos # (Auto) 0.1 Baso # (Auto) 0.1 Puncture Site pCO2 pO2 HCO3 ABG pH ABG Total CO2 ABG O2 Saturation ABG Base Excess Alfredo Test ABG Potassium VBG pH VBG pCO2 VBG HCO3 VBG Total CO2 VBG O2 Sat (Calc) VBG Base Excess VBG Potassium A-a O2 Difference Respiratory Index Glucose Lactate FiO2 Crit Value Called To Crit Value Called By Crit Value Read Back Blood Gas Notified Time Sodium 142 Potassium 4.7 Chloride 107 Carbon Dioxide 14 L Anion Gap 26 H BUN 14 Creatinine 1.4 H Est GFR ( Amer) 53 Est GFR (Non-Af Amer) 44 POC Glucose (mg/dL) 158 H Random Glucose 155 H Hemoglobin A1c Lactic Acid Calcium 9.7 Total Bilirubin 0.5 AST 19 ALT 22 Alkaline Phosphatase 88 Total Protein 8.1 Albumin 4.8 Globulin 3.4 Albumin/Globulin Ratio 1.4 Triglycerides Cholesterol LDL Cholesterol Direct HDL Cholesterol Lipase 134 Beta HCG, Quant Arterial Blood Potassium Venous Blood Potassium Urine Color Urine Clarity Urine pH Ur Specific [place] Urine Protein Urine Glucose (UA) Urine Ketones Urine Blood Urine Nitrate Urine Bilirubin Urine Urobilinogen Ur Leukocyte Esterase Urine WBC (Auto) Urine RBC (Auto) Amorphous Sediment Urine Bacteria Broad Casts Urine HCG, Qual Salicylates Urine Opiates Screen Urine Methadone Screen Acetaminophen Ur Barbiturates Screen Ur Phencyclidine Scrn Ur Amphetamines Screen U Benzodiazepines Scrn U Oth Cocaine Metabols U Cannabinoids Screen Alcohol, Quantitative < 10 01/30/19 01/30/19 01/30/19 04:31 04:31 04:35 WBC RBC Hgb Hct MCV MCH MCHC RDW Plt Count MPV Neut % (Auto) Lymph % (Auto) Norman % (Auto) Eos % (Auto) Baso % (Auto) Neut # (Auto) Lymph # (Auto) [place] # (Auto) Eos # (Auto) Baso # (Auto) Puncture Site pCO2 pO2 HCO3 ABG pH ABG Total CO2 ABG O2 Saturation ABG Base Excess Alfredo Test ABG Potassium VBG pH VBG pCO2 VBG HCO3 VBG Total CO2 VBG O2 Sat (Calc) VBG Base Excess VBG Potassium A-a O2 Difference Respiratory Index Glucose Lactate FiO2 Crit Value Called To Crit Value Called By Crit Value Read Back Blood Gas Notified Time Sodium Potassium Chloride Carbon Dioxide Anion Gap BUN Creatinine Est GFR ( Amer) Est GFR (Non-Af Amer) POC Glucose (mg/dL) Random Glucose Hemoglobin A1c Lactic Acid 5.3 H* Calcium Total Bilirubin AST ALT Alkaline Phosphatase Total Protein Albumin Globulin Albumin/Globulin Ratio Triglycerides Cholesterol LDL Cholesterol Direct HDL Cholesterol Lipase Beta HCG, Quant < 2.39 Arterial Blood Potassium Venous Blood Potassium Urine Color Urine Clarity Urine pH Ur Specific [place] Urine Protein Urine Glucose (UA) Urine Ketones Urine Blood Urine Nitrate Urine Bilirubin Urine Urobilinogen Ur Leukocyte Esterase Urine WBC (Auto) Urine RBC (Auto) Amorphous Sediment Urine Bacteria Broad Casts Urine HCG, Qual Salicylates < 1.0 Urine Opiates Screen Urine Methadone Screen Acetaminophen < 10.0 L Ur Barbiturates Screen Ur Phencyclidine Scrn Ur Amphetamines Screen U Benzodiazepines Scrn U Oth Cocaine Metabols U Cannabinoids Screen Alcohol, Quantitative 01/30/19 01/30/19 01/30/19 04:45 04:45 05:05 WBC RBC Hgb Hct MCV MCH MCHC RDW Plt Count MPV Neut % (Auto) Lymph % (Auto) [place] % (Auto) Eos % (Auto) Baso % (Auto) Neut # (Auto) Lymph # (Auto) Norman # (Auto) Eos # (Auto) Baso # (Auto) Puncture Site pCO2 pO2 HCO3 ABG pH ABG Total CO2 ABG O2 Saturation ABG Base Excess Alfredo Test ABG Potassium VBG pH VBG pCO2 VBG HCO3 VBG Total CO2 VBG O2 Sat (Calc) VBG Base Excess VBG Potassium A-a O2 Difference Respiratory Index Glucose Lactate FiO2 Crit Value Called To Crit Value Called By Crit Value Read Back Blood Gas Notified Time Sodium Potassium Chloride Carbon Dioxide Anion Gap BUN Creatinine Est GFR ( Amer) Est GFR (Non-Af Amer) POC Glucose (mg/dL) 138 H Random Glucose Hemoglobin A1c Lactic Acid Calcium Total Bilirubin AST ALT Alkaline Phosphatase Total Protein Albumin Globulin Albumin/Globulin Ratio Triglycerides Cholesterol LDL Cholesterol Direct HDL Cholesterol Lipase Beta HCG, Quant Arterial Blood Potassium Venous Blood Potassium Urine Color Straw Urine Clarity Clear Urine pH 5.0 Ur Specific [place] 1.005 Urine Protein 1+ H Urine Glucose (UA) 1+ Urine Ketones Negative Urine Blood 1+ H Urine Nitrate Negative Urine Bilirubin Negative Urine Urobilinogen Normal Ur Leukocyte Esterase Neg Urine WBC (Auto) 1 Urine RBC (Auto) 6 H Amorphous Sediment Rare H Urine Bacteria Rare Broad Casts 5 Urine HCG, Qual Negative Salicylates Urine Opiates Screen Negative Urine Methadone Screen Negative Acetaminophen Ur Barbiturates Screen Negative Ur Phencyclidine Scrn Negative Ur Amphetamines Screen Negative U Benzodiazepines Scrn Negative U Oth Cocaine Metabols Negative U Cannabinoids Screen Negative Alcohol, Quantitative 01/30/19 01/30/19 01/30/19 05:31 06:29 08:27 WBC RBC Hgb Hct MCV MCH MCHC RDW Plt Count MPV Neut % (Auto) Lymph % (Auto) [place] % (Auto) Eos % (Auto) Baso % (Auto) Neut # (Auto) Lymph # (Auto) Norman # (Auto) Eos # (Auto) Baso # (Auto) Puncture Site pCO2 pO2 33 HCO3 ABG pH ABG Total CO2 ABG O2 Saturation ABG Base Excess Alfredo Test ABG Potassium VBG pH 7.20 L VBG pCO2 46 VBG HCO3 15.9 VBG Total CO2 19.4 L VBG O2 Sat (Calc) 60.3 VBG Base Excess -9.9 L VBG Potassium 5.3 H A-a O2 Difference Respiratory Index Glucose 150 H Lactate 6.2 H* FiO2 Crit Value Called To Dr acharya Crit Value Called By Aleah rt Crit Value Read Back Y Blood Gas Notified Time 546 Sodium 142.0 143 Potassium 5.6 H Chloride 108.0 H 106 Carbon Dioxide 15 L Anion Gap 28 H BUN 13 Creatinine 1.4 H Est GFR ( Amer) 53 Est GFR (Non-Af Amer) 44 POC Glucose (mg/dL) 157 H Random Glucose 139 H Hemoglobin A1c Lactic Acid Calcium 8.1 L Total Bilirubin 0.5 AST 17 ALT 16 Alkaline Phosphatase 88 Total Protein 8.5 H Albumin 4.9 Globulin 3.6 Albumin/Globulin Ratio 1.4 Triglycerides 90 Cholesterol 152 LDL Cholesterol Direct 103 HDL Cholesterol 40 Lipase Beta HCG, Quant Arterial Blood Potassium Venous Blood Potassium 5.3 H Urine Color Urine Clarity Urine pH Ur Specific [place] Urine Protein Urine Glucose (UA) Urine Ketones Urine Blood Urine Nitrate Urine Bilirubin Urine Urobilinogen Ur Leukocyte Esterase Urine WBC (Auto) Urine RBC (Auto) Amorphous Sediment Urine Bacteria Broad Casts Urine HCG, Qual Salicylates Urine Opiates Screen Urine Methadone Screen Acetaminophen Ur Barbiturates Screen Ur Phencyclidine Scrn Ur Amphetamines Screen U Benzodiazepines Scrn U Oth Cocaine Metabols U Cannabinoids Screen Alcohol, Quantitative 01/30/19 01/30/19 01/30/19 08:27 08:27 08:45 WBC RBC Hgb Hct MCV MCH MCHC RDW Plt Count MPV Neut % (Auto) Lymph % (Auto) [place] % (Auto) Eos % (Auto) Baso % (Auto) Neut # (Auto) Lymph # (Auto) Norman # (Auto) Eos # (Auto) Baso # (Auto) Puncture Site Rr pCO2 22 L pO2 132 H HCO3 15.8 L ABG pH 7.34 L ABG Total CO2 12.6 L ABG O2 Saturation 99.2 H ABG Base Excess -11.8 L Alfredo Test Pos ABG Potassium 4.5 VBG pH VBG pCO2 VBG HCO3 VBG Total CO2 VBG O2 Sat (Calc) VBG Base Excess VBG Potassium A-a O2 Difference -10.0 Respiratory Index -0.1 Glucose 142 H Lactate 5.8 H* FiO2 21.0 Crit Value Called To Dr villalobos Crit Value Called By Tamera sykes rt Crit Value Read Back Y Blood Gas Notified Time 910 Sodium 139.0 Potassium Chloride 110.0 H Carbon Dioxide Anion Gap BUN Creatinine Est GFR ( Amer) Est GFR (Non-Af Amer) POC Glucose (mg/dL) Random Glucose Hemoglobin A1c 6.5 Lactic Acid 6.3 H* Calcium Total Bilirubin AST ALT Alkaline Phosphatase Total Protein Albumin Globulin Albumin/Globulin Ratio Triglycerides Cholesterol LDL Cholesterol Direct HDL Cholesterol Lipase Beta HCG, Quant Arterial Blood Potassium 4.5 Venous Blood Potassium Urine Color Urine Clarity Urine pH Ur Specific [place] Urine Protein Urine Glucose (UA) Urine Ketones Urine Blood Urine Nitrate Urine Bilirubin Urine Urobilinogen Ur Leukocyte Esterase Urine WBC (Auto) Urine RBC (Auto) Amorphous Sediment Urine Bacteria Broad Casts Urine HCG, Qual Salicylates Urine Opiates Screen Urine Methadone Screen Acetaminophen Ur Barbiturates Screen Ur Phencyclidine Scrn Ur Amphetamines Screen U Benzodiazepines Scrn U Oth Cocaine Metabols U Cannabinoids Screen Alcohol, Quantitative Assessment & Plan (1) Hyperkalemia Status: Acute (2) Metabolic acidosis Status: Acute (3) Metformin overdose Status: Acute (4) Suicide attempt Status: Acute (5) Major depression Status: Acute (6) Acute renal failure Status: Acute - Assessment and Plan (Free Text) Plan: BETH , acidosis and hyperkalemia secondary to drug overdose good UOP BS ok, no hypoglycemia noted record UOP continue iv fluids no need of r IV bicarb as PH 7.3 suggest repeat labs now - check bicarb, potassium and Cr No need ofr HD at this time discussed with ICU resident - Date & Time Date: 01/30/19 Time: 12:15
[2019-01-30 14:07] LABS: ALB/GLOB RATIO 1.4 (1.0-2.1); ALBUMIN 4.6 g/dL (3.5-5.0); CALCIUM 8.3 mg/dl (8.6-10.4)
[2019-01-30] MEDS ORDERED: Magnesium Sulfate 1 gm in D5W 1 GM/100 ML BAG IVPB ONE (14:36)
[2019-01-31] MEDS: Sodium Chloride 0.9% 1,000 ML IV SCH ×4 (01:45→13:01)
[2019-01-31 06:45] LABS: BASO % 0.2 % (0.0-2.0); EOS % 0.6 % (0.0-4.0); HEMOGLOBIN 11.2 g/dL (11.0-16.0); LYMPH # 1.5 K/uL (1.0-4.3); LYMPH % 18.4 % (20.0-40.0); MEAN CELL VOLUME 79.6 fL (81.0-99.0); MEAN CORPUSCULAR HEMOGLOBIN 26.1 pg (27.0-31.0); MEAN CORPUSCULAR HGB CONC 32.8 g/dL (33.0-37.0); MEAN PLATELET VOLUME 8.3 fL (7.2-11.7); MONO # 0.6 K/uL (0.0-0.8); MONO % 6.9 % (0.0-10.0); NEUT # 6.2 K/uL (1.8-7.0); NEUT % 73.9 % (50.0-75.0); RBC 4.29 Mil/uL (3.80-5.20); WHITE BLOOD COUNT 8.3 K/uL (4.8-10.8)
[2019-01-31 07:01] LABS: ALB/GLOB RATIO 1.3 (1.0-2.1); ALBUMIN 3.3 g/dL (3.5-5.0); ALT/SGPT 31 U/L (9-52); AST/SGOT 16 U/L (14-36); BLOOD UREA NITROGEN 14 mg/dL (7-17); CALCIUM 7.4 mg/dl (8.6-10.4); GFR NON-AFRICAN AMERICAN > 60
--- NOTE | 2019-01-31 08:32 | CP.PCM.PN ---
Subjective - Date & Time of Evaluation Date of Evaluation: 01/31/19 Time of Evaluation: 08:29 - Subjective Subjective: Pt is a 28 yo Maldiv[place] female with hx Depression /suicidal ideation- on antidepressant at home, ran out of meds 2 weeks ago, Presented to ER last night after ingesting 10 tabs Metformin (5000 mg total ) . Initially had some nausea/vomiting . Receiving IV fluid in ICU now . Vomited once this morning no headache, dizziness, diarrhea or abdominal cramps Renal consult for elevated Cr 1.4 and lactate level of 7 on presentation Ph 7.3 on ABG, no repeat labs since admission good UOP noted PMHx- depression PSHx- none All- NKDA social- no tob/ etoh/drugs FH-mother with DM 01/31 Notes reviewed Comfortable in bed in icu Offers no complaints NO distress NO pain States appetite good Wants to go home 10 point ros negative other than stated above Objective - Vital Signs/Intake and Output Vital Signs (last 24 hours): Temp Pulse Resp BP Pulse Ox 98.4 F 92 H 16 108/68 100 01/31/19 08:00 01/31/19 08:12 01/31/19 08:12 01/31/19 08:12 01/31/19 08:12 Intake and Output: 01/31/19 01/31/19 06:59 18:59 Intake Total 2675 640 Output Total 800 Balance 1875 640 - Medications Medications: Current Medications Heparin Sodium (Porcine) (Heparin) 5,000 units SC Q8 [facility] Last Admin: 01/31/19 05:28 Dose: Not Given Sodium Chloride (Sodium Chloride 0.9%) 1,000 mls @ 200 mls/hr IV .Q5H [facility] Last Admin: 01/31/19 07:38 Dose: 200 mls/hr - Labs Labs: 01/31/19 06:38 01/31/19 06:38 - Constitutional Appears: Well, Non-toxic - Head Exam Head Exam: ATRAUMATIC, NORMOCEPHALIC - Eye Exam Eye Exam: EOMI, Normal appearance - ENT Exam ENT Exam: Mucous Membranes Moist, Normal Oropharynx - Neck Exam Neck Exam: absent: Lymphadenopathy, Thyromegaly - Respiratory Exam Respiratory Exam: Clear to Ausculation Bilateral. absent: Rales, Rhonchi - Cardiovascular Exam Cardiovascular Exam: +S1, +S2. absent: Rubs - GI/Abdominal Exam GI & Abdominal Exam: Soft, Normal Bowel Sounds - Extremities Exam Extremities Exam: absent: Joint Swelling, Pedal Edema - Neurological Exam Neurological Exam: Alert, Awake - Skin Skin Exam: Dry, Intact Assessment and Plan (1) Acute renal failure Status: Acute (2) Hyperkalemia Status: Acute (3) Metabolic acidosis Status: Acute (4) Metformin overdose Status: Acute (5) Suicide attempt Status: Acute - Assessment and Plan (Free Text) Assessment: recovering from metformin overdose Lactic acidosis improving Renal function stable Stable renal james Psych eval / follow up
[2019-01-31] MEDS ORDERED: Potassium & Sodium Phosphate PO ONE (10:34)
[2019-01-31 11:14] VITALS: O2SAT 100
--- NOTE | 2019-01-31 12:14 | PCM.PYCHPN ---
Psychiatric Progress Note - Psychiatric Progress Note Patient seen today, length of contact: 15 min Patient Chief Complaint: "I feel better" Problems Identified/Issues Discussed: The pt is seen again, chart reviewed, and case is discussed with the team. The pt denies any new issues or SI. Not ready for discharge due to risk of relapse She is reluctant but agreed with transfer [facility] was contacted CM is contacted re [place] [facility] [place] with insurance SHe will advise After care discussed again. Pt is willing to try outpatient care ie therapy Medication Change: Yes (resume lexapro) Medical Record Reviewed: Yes Mental Status Examination - Cognitive Function Orientation: Person, Place, Situation, Time Memory: Impaired Attention: Poor Concentration: Poor Association: WNL Fund of Knowledge: Poor - Mood Mood: Depressed, Anxious - Affect Affect: Constricted - Speech Speech: Appropriate - Formal Thought Process Formal Thought Process: Hallucinations - Suicidal Ideation Suicidal Ideation: No - Homicidal Ideation Homicidal Ideation: No Goal/Treatment Plan - Goal/Treatment Plan Need for Continued Stay: Severe depression anxiety, Discharge may exacerbated symptoms, Severe functional impairment, Other Progress Toward Problem(s) and Goals/Treatment Plan: Lexapro for depression Abilify for psychosis As need medications All risks, benefits and alternatives of the meds discussed, and the pt agreed and understood. Individual therapy Psychoeducation and support daily
--- NOTE | 2019-01-31 12:21 | CP.PCM.PN ---
Subjective - Date & Time of Evaluation Date of Evaluation: 01/31/19 Time of Evaluation: 12:20 - Subjective Subjective: IMPROVING MENTALLY METABOLIC STATUS STABLE PSYCH NOTED CONT OBSERVATION WILL D/W PT OF PSYCH TRANSFER Objective - Vital Signs/Intake and Output Vital Signs (last 24 hours): Temp Pulse Resp BP Pulse Ox 98.4 F 78 15 106/67 100 01/31/19 08:00 01/31/19 11:12 01/31/19 11:12 01/31/19 11:12 01/31/19 11:12 Intake and Output: 01/31/19 01/31/19 11:59 23:59 Intake Total 2915 Output Total 1000 Balance 1915 - Medications Medications: Current Medications Escitalopram Oxalate (Lexapro) 5 mg PO DAILY [facility] Heparin Sodium (Porcine) (Heparin) 5,000 units SC Q8 [facility] Last Admin: 01/31/19 05:28 Dose: Not Given Sodium Chloride (Sodium Chloride 0.9%) 1,000 mls @ 200 mls/hr IV .Q5H [facility] Last Admin: 01/31/19 07:38 Dose: 200 mls/hr - Labs Labs: 01/31/19 06:38 01/31/19 06:38 Assessment and Plan (1) Metformin overdose Status: Acute (2) Suicide attempt Status: Acute
[2019-02-01 06:08] LABS: ALB/GLOB RATIO 1.4 (1.0-2.1); ALBUMIN 3.4 g/dL (3.5-5.0); ALT/SGPT 30 U/L (9-52); AST/SGOT 12 U/L (14-36); BLOOD UREA NITROGEN 10 mg/dL (7-17); CALCIUM 8.6 mg/dl (8.6-10.4); GFR NON-AFRICAN AMERICAN > 60
[2019-02-01 08:18] VITALS: BP 106/67; PULSE 86; RESP 18
--- NOTE | 2019-02-01 11:51 | CP.PCM.DIS ---
Provider - Provider Date of Admission: 01/30/19 06:07 Attending physician: Esther Mueller MD Consults: 01/30/19 07:21 Psychiatry Consult Routine Comment: Consulting Provider: Amy Renteria Consulting Physician: Amy Renteria Reason for Consult: suicide attempt, metformin overdose, depression Time Spent in preparation of Discharge (in minutes): 35 Diagnosis - Discharge Diagnosis (1) Metformin overdose Status: Acute (2) Suicide attempt Status: Acute Hospital Course - Lab Results Lab Results: Micro Results 01/30/19 10:18 Naris MRSA Culture (Admit) - Final MRSA NOT DETECTED Most Recent Lab Values WBC 8.3 K/uL (4.8-10.8) 01/31/19 06:38 RBC 4.29 Mil/uL (3.80-5.20) 01/31/19 06:38 Hgb 11.2 g/dL (11.0-16.0) 01/31/19 06:38 Hct 34.2 % (34.0-47.0) 01/31/19 06:38 MCV 79.6 fL (81.0-99.0) L 01/31/19 06:38 MCH 26.1 pg (27.0-31.0) L 01/31/19 06:38 MCHC 32.8 g/dL (33.0-37.0) L 01/31/19 06:38 RDW 14.0 % (11.5-14.5) 01/31/19 06:38 Plt Count 202 K/uL (130-400) 01/31/19 06:38 MPV 8.3 fL (7.2-11.7) 01/31/19 06:38 Neut % (Auto) 73.9 % (50.0-75.0) 01/31/19 06:38 Lymph % (Auto) 18.4 % (20.0-40.0) L 01/31/19 06:38 [place] % (Auto) 6.9 % (0.0-10.0) 01/31/19 06:38 Eos % (Auto) 0.6 % (0.0-4.0) 01/31/19 06:38 Baso % (Auto) 0.2 % (0.0-2.0) 01/31/19 06:38 Neut # (Auto) 6.2 K/uL (1.8-7.0) 01/31/19 06:38 Lymph # (Auto) 1.5 K/uL (1.0-4.3) 01/31/19 06:38 [place] # (Auto) 0.6 K/uL (0.0-0.8) 01/31/19 06:38 Eos # (Auto) 0.0 K/uL (0.0-0.7) 01/31/19 06:38 Baso # (Auto) 0.0 K/uL (0.0-0.2) 01/31/19 06:38 Puncture Site Rr 01/30/19 08:45 pCO2 22 mm/Hg (35-45) L 01/30/19 08:45 pO2 132 mm/Hg (80-100) H 01/30/19 08:45 HCO3 15.8 mmol/L (21-28) L 01/30/19 08:45 ABG pH 7.34 (7.35-7.45) L 01/30/19 08:45 ABG Total CO2 12.6 mmol/L (22-28) L 01/30/19 08:45 ABG O2 Saturation 99.2 % (95-98) H 01/30/19 08:45 ABG Base Excess -11.8 mmol/L (-2.0-3.0) L 01/30/19 08:45 Alfredo Test Pos 01/30/19 08:45 ABG Potassium 4.5 mmol/L (3.6-5.2) 01/30/19 08:45 VBG pH 7.20 (7.32-7.43) L 01/30/19 05:31 VBG pCO2 46 mmHg (40-60) 01/30/19 05:31 VBG HCO3 15.9 mmol/L 01/30/19 05:31 VBG Total CO2 19.4 mmol/L (22-28) L 01/30/19 05:31 VBG O2 Sat (Calc) 60.3 % (40-65) 01/30/19 05:31 VBG Base Excess -9.9 mmol/L (0.0-2.0) L 01/30/19 05:31 VBG Potassium 5.3 mmol/L (3.6-5.2) H 01/30/19 05:31 A-a O2 Difference -10.0 mm/Hg 01/30/19 08:45 Respiratory Index -0.1 01/30/19 08:45 Sodium 139.0 mmol/l (132-148) 01/30/19 08:45 Chloride 110.0 mmol/L (98-107) H 01/30/19 08:45 Glucose 142 mg/dl (65-105) H 01/30/19 08:45 Lactate 5.8 mmol/L (0.7-2.1) H* 01/30/19 08:45 FiO2 21.0 % 01/30/19 08:45 Crit Value Called To Dr villalobos 01/30/19 08:45 Crit Value Called By Tamera carney 01/30/19 08:45 Crit Value Read Back Y 01/30/19 08:45 Blood Gas Notified Time 910 01/30/19 08:45 Sodium 138 mmol/L (132-148) 02/01/19 05:48 Potassium 4.0 mmol/L (3.6-5.2) 02/01/19 05:48 Chloride 106 mmol/L (98-107) 02/01/19 05:48 Carbon Dioxide 25 mmol/L (22-30) 02/01/19 05:48 Anion Gap 11 (10-20) 02/01/19 05:48 BUN 10 mg/dL (7-17) 02/01/19 05:48 Creatinine 0.7 mg/dL (0.7-1.2) 02/01/19 05:48 Est GFR ( Amer) > 60 02/01/19 05:48 Est GFR (Non-Af Amer) > 60 02/01/19 05:48 POC Glucose (mg/dL) 123 mg/dL (65-110) H 01/31/19 07:36 Random Glucose 117 mg/dL (65-105) H 02/01/19 05:48 Hemoglobin A1c 6.5 % (4.2-6.5) 01/30/19 08:27 Lactic Acid 1.2 mmol/L (0.7-2.1) 02/01/19 05:48 Calcium 8.6 mg/dl (8.6-10.4) 02/01/19 05:48 Phosphorus 2.1 mg/dL (2.5-4.5) L 01/31/19 06:38 Magnesium 1.9 mg/dL (1.6-2.3) 01/31/19 06:38 Total Bilirubin 0.3 mg/dL (0.2-1.3) 02/01/19 05:48 AST 12 U/L (14-36) L D 02/01/19 05:48 ALT 30 U/L (9-52) 02/01/19 05:48 Alkaline Phosphatase 61 U/L (38-126) 02/01/19 05:48 Total Protein 5.9 g/dL (6.3-8.3) L 02/01/19 05:48 Albumin 3.4 g/dL (3.5-5.0) L 02/01/19 05:48 Globulin 2.5 gm/dL (2.2-3.9) 02/01/19 05:48 Albumin/Globulin Ratio 1.4 (1.0-2.1) 02/01/19 05:48 Triglycerides 90 mg/dL (0-149) 01/30/19 08:27 Cholesterol 152 mg/dL (0-199) 01/30/19 08:27 LDL Cholesterol Direct 103 mg/dL (0-129) 01/30/19 08:27 HDL Cholesterol 40 mg/dL (30-70) 01/30/19 08:27 Lipase 134 U/L (23-300) 01/30/19 04:31 Beta HCG, Quant < 2.39 mIU/ML 01/30/19 04:31 Arterial Blood Potassium 4.5 mmol/L (3.6-5.2) 01/30/19 08:45 Venous Blood Potassium 5.3 mmol/L (3.6-5.2) H 01/30/19 05:31 Urine Color Straw (YELLOW) 01/30/19 04:45 Urine Clarity Clear (Clear) 01/30/19 04:45 Urine pH 5.0 (5.0-8.0) 01/30/19 04:45 Ur Specific [place] 1.005 (1.003-1.030) 01/30/19 04:45 Urine Protein 1+ mg/dL (NEGATIVE) H 01/30/19 04:45 Urine Glucose (UA) 1+ mg/dL (Normal) 01/30/19 04:45 Urine Ketones Negative mg/dL (NEGATIVE) 01/30/19 04:45 Urine Blood 1+ (NEGATIVE) H 01/30/19 04:45 Urine Nitrate Negative (NEGATIVE) 01/30/19 04:45 Urine Bilirubin Negative (NEGATIVE) 01/30/19 04:45 Urine Urobilinogen Normal mg/dL (0.2-1.0) 01/30/19 04:45 Ur Leukocyte Esterase Neg Yuniel/uL (Negative) 01/30/19 04:45 Urine WBC (Auto) 1 /hpf (0-5) 01/30/19 04:45 Urine RBC (Auto) 6 /hpf (0-3) H 01/30/19 04:45 Amorphous Sediment Rare /ul (<OCC) H 01/30/19 04:45 Urine Bacteria Rare (<OCC) 01/30/19 04:45 Broad Casts 5 /lpf (0-1) 01/30/19 04:45 Urine HCG, Qual Negative (NEGATIVE) 01/30/19 04:45 Salicylates < 1.0 mg/dL 1 01/30/19 04:31 Urine Opiates Screen Negative (NEGATIVE) 01/30/19 04:45 Urine Methadone Screen Negative (NEGATIVE) 01/30/19 04:45 Acetaminophen < 10.0 ug/mL (10.0-30.0) L 01/30/19 04:31 Ur Barbiturates Screen Negative (NEGATIVE) 01/30/19 04:45 Ur Phencyclidine Scrn Negative (NEGATIVE) 01/30/19 04:45 Ur Amphetamines Screen Negative (NEGATIVE) 01/30/19 04:45 U Benzodiazepines Scrn Negative (NEGATIVE) 01/30/19 04:45 U Oth Cocaine Metabols Negative (NEGATIVE) 01/30/19 04:45 U Cannabinoids Screen Negative (NEGATIVE) 01/30/19 04:45 Alcohol, Quantitative < 10 mg/dl (0-10) 01/30/19 04:31 - Hospital Course Hospital Course: 28-year-old female is brought to the ED by ambulance with at bedside for evaluation of nausea, vomiting and diarrhea which began prior to arrival. Patient states she got into an argument with her and took ten tablets of 500mg Metformin because she wanted to hurt herself. Upon ED arrival, patient states she feels tired and sleepy. Patient has past psychiatric history and has been admitted for suicidal ideation in the past HEMODYNAMICALLY STABLE PT HAS H/O DM TAKES METFORMIN LAST SEEN IN OFFICE 08/14 ALSO USED TO TAKE ZOLOFT AND TRILAPTA FROM [facility] PT. WAS OBSERVED IN ICU AND POISON CONTROL PARAMETERS FOLLOWED [facility] CLEARED PT FOR D/C PT DECLINED PSYCH UNIT TRANSFER PT D/C F/U IN OFFICE Discharge Exam - Head Exam Head Exam: ATRAUMATIC, NORMOCEPHALIC Discharge Plan - Follow Up Plan Condition: GUARDED Disposition: HOME/ ROUTINE
[2019-02-01 12:19] VITALS: TEMP 98.7
--- NOTE | 2019-02-01 13:55 | PCM.PYCHPN ---
Psychiatric Progress Note - Psychiatric Progress Note Patient seen today, length of contact: 15 min Patient Chief Complaint: "I am happy now" Problems Identified/Issues Discussed: The pt is seen again, chart reviewed, and case is discussed with the team. No SI, HI, del/mercer Compliant w meds, reports no SEs Future oriented, not suicidal, regretful Agrees with outpt f/u, which is [facility] as her insurance is not accepted at [facility] She doesn't want admission and is not screenable at this time Support given, safety plan discussed Her will be made aware Meds to be sent Medication Change: Yes (abilify added last night) Medical Record Reviewed: Yes Mental Status Examination - Cognitive Function Orientation: Person, Place, Situation, Time Memory: Intact Attention: WNL Concentration: Poor Association: WNL Fund of Knowledge: Poor - Mood Mood: Depressed, Anxious - Affect Affect: Constricted - Speech Speech: Appropriate - Formal Thought Process Formal Thought Process: No Impairment - Suicidal Ideation Suicidal Ideation: No - Homicidal Ideation Homicidal Ideation: No Goal/Treatment Plan - Goal/Treatment Plan Need for Continued Stay: Other Progress Toward Problem(s) and Goals/Treatment Plan: Lexapro for depression Abilify for psychosis As need medications All risks, benefits and alternatives of the meds discussed, and the pt agreed and understood. Individual therapy Psychoeducation and support daily Cleared for d/c
--- NOTE | 2019-02-02 03:39 | CARD ---
APPROVED REPORT Date of service: 01/30/2019 EKG Measurement Heart [id number] <Conclusion> Normal sinus rhythm Normal ECG
== END 2019-02-01 16:43 | disposition home or self-care (01) | DRG 918 ==
LOC: C.ER 03:41 → C.9I 06:07 → C.9E 06:22 → C.9I 06:23
PROVIDERS: ADMIT Internal Medicine Cardiovascular Disease; ATTEND Internal Medicine Cardiovascular Disease
DX: T38.3X2A Poisoning by insulin and oral hypoglycemic [antidiabetic] drugs, intentional self-harm, initial encounter (principal); N17.9 Acute kidney failure, unspecified; E87.2 Acidosis; F33.3 Major depressive disorder, recurrent, severe with psychotic symptoms; E87.5 Hyperkalemia; E11.9 Type 2 diabetes mellitus without complications; F25.9 Schizoaffective disorder, unspecified; Z91.14 Patient's other noncompliance with medication regimen; Z79.84 Long term (current) use of oral hypoglycemic drugs; Y92.009 Unspecified place in unspecified non-institutional (private) residence as the place of occurrence of the external cause; Z86.32 Personal history of gestational diabetes; Z83.3 Family history of diabetes mellitus